=== PATIENT | male | born 1970 | race Caucasian/White ===

== ENCOUNTER 2017-03-09 15:25 | Inpatient (IN) | payer MEDICARE, OTHER ==
[~2017-03-09] VITALS: Ht 177.8 cm; Wt 147.4 kg
[~2017-03-09 15:25] MED LIST: ADVAIR 100-501 EACH; ALBUTEROL SULF8.5 GM; AMLODIPINE PO; ATROVENT HFA12.9 GM; ATROVENT HFA12.9 GM INH; AZITHROMYCIN250 MG; AZITHROMYCIN250 MG PO; BENICAR PO; K DUR10 MEQ PO; K-DUR20 MEQ; K-TAB10 MEQ PO; MEDROL4 MG PO; METOPROLOL PO; SPIRIVA HANDIH18 MCG IH; TESSALON PERLE100 MG PO; Z.0.CLINDAMYCIN HC30 PO; Z.0.LASIX20 MG PO; [UNRECOGNIZED DRUG - OTHER] PO; [UNRECOGNIZED DRUG - OTHER] PO
[2017-03-09] MEDS ORDERED: ASPIRIN 81 MG CHEW TAB PO ONE (16:30)
--- NOTE | 2017-03-09 17:20 | Diagnostic Imaging Report ---
EXAMINATION: CHEST SINGLE (PORTABLE) INDICATION: \S\ERMD ORDER \S\[id number] \S\1700 \S\Y COMPARISON: Chest radiograph on 08/22/2011 FINDINGS: AP view TUBES and LINES: None. LUNGS: Lungs are well inflated. Bilateral interstitial edema. Azygous fissure, unchanged. PLEURA: No pleural effusion or pneumothorax. HEART AND MEDIASTINUM: Mild enlargement of the cardiac silhouette.. BONES AND SOFT TISSUES: No acute osseous lesion. Soft tissues are unremarkable. UPPER ABDOMEN: No free air under the diaphragm. IMPRESSION: Bilateral interstitial edema. Signed by: Dr. Alessia Lee M.D. on 03/09/2017 5:17 PM
--- NOTE | 2017-03-09 17:30 | Diagnostic Imaging Report ---
EXAMINATION: Head CT HISTORY: These images, head pressure for the last 2 days COMPARISON: None. TECHNIQUE: Multidetector axial images were obtained without contrast from the foramen magnum to the vertex . The images were reconstructed using brain and bone algorithms. Thin section brain images were reformatted into coronal and sagittal planes. Intravenous contrast: None. Motion/streaking artifact limits the evaluation of the skull base and posterior cranial fossa. FINDINGS: Parenchyma: 1. No abnormal densities. 2. No mass or hemorrhage. No CT evidence of acute territorial vascular insult. Extra-axial spaces:No abnormal density. No extra-axial fluid collections Brain volume: Normal for age. Ventricles: No hydrocephalus or displacement. Arteries: No density suggestive of thrombus. Dural sinuses: No abnormal density. Extra-axial spaces: No abnormal density. Foramen magnum: No mass, Chiari malformation, or basilar invagination. Sella: No obvious mass. Paranasal/mastoid sinuses: Imaged portions unremarkable. Skull/Scalp: No lytic or blastic lesions. No fractures. IMPRESSION: Normal head CT. Signed by: Dr. Samantha Loza M.D. on 03/09/2017 5:27 PM
[2017-03-09 17:44] LABS: BASOPHILS % 0.4 % (0.0-1.0); EOSINOPHILS # (AUTO) 0.1 (0.0-0.4); EOSINOPHILS % 0.7 % (0.0-6.0); HEMATOCRIT 48.4 % (38.2-49.6); HEMOGLOBIN 16.1 g/dL (14.0-18.0); LYMPHOCYTES # (AUTO) 1.1 (1.0-3.2); LYMPHOCYTES % 10.2 % (18.0-39.1); MEAN CORPUSCULAR HEMOGLOBIN 33.2 pg (28-32); MEAN CORPUSCULAR HGB CONC 33.3 g/dL (31-35); MEAN CORPUSCULAR VOLUME 99.8 fL (81-99); MONOCYTES # (AUTO) 0.6 (0.2-0.8); MONOCYTES % 4.9 % (4.4-11.3); NEUTROPHILS # (AUTO) 9.3 (2.1-6.9); NEUTROPHILS % 83.4 % (38.7-80.0); PLATELET COUNT 273 x10e3/uL (140-360); RED BLOOD COUNT 4.85 x10e6/uL (4.3-5.7); RED CELL DISTRIBUTION WIDTH 14.7 % (11.7-14.4)
[2017-03-09 18:05] LABS: ALANINE AMINOTRANSFERASE 14 IU/L (0-55); ALBUMIN/GLOBULIN RATIO 0.7 (0.8-2.0); ALKALINE PHOSPHATASE 86 IU/L (40-150); ANION GAP 15.3 mmol/L (8-16); BLOOD UREA NITROGEN 8 mg/dL (7-26); BUN/CREATININE RATIO 11 (6-25); CALCIUM 8.8 mg/dL (8.4-10.2); CARBON DIOXIDE 38 mmol/L (22-29); CHLORIDE 91 mmol/L (98-107); CREATINE KINASE 20 IU/L (30-200); EST GLOMERULAR FILTRATION RATE > 60 ML/MIN (60-); GLUCOSE 197 mg/dL (74-118); POTASSIUM 3.3 mmol/L (3.5-5.1); SODIUM 141 mmol/L (136-145)
[2017-03-09 18:12] LABS: TROPONIN I < 0.001 ng/mL (0-0.300)
[2017-03-09 18:21] LABS: INR 0.9; PROTHROMBIN TIME 12.6 seconds (11.9-14.5)
[2017-03-09 18:22] LABS: PARTIAL THROMBOPLASTIN TIME 30.3 seconds (23.8-35.5)
[2017-03-09] MEDS ORDERED: METHYLPREDNISOLONE SOD SUCC 125 MG/2ML VIAL ONE (20:11)
[2017-03-09] MEDS ORDERED: DIPHENHYDRAMINE HCL INJ 1 ML ONE (20:11)
[2017-03-09] MEDS ORDERED: FAMOTIDINE 20 MG/2 ML VIAL IV ONE (20:12)
[2017-03-09] MEDS ORDERED: ALBUTEROL SULF 0.083% NEB SOLN 3 ML NEB NEB STA (21:45)
[2017-03-09] MEDS ORDERED: IPRATROPIUM BROMIDE 0.02% 2.5 ML NEB NEB ONE (21:45)
--- NOTE | 2017-03-09 21:52 | Diagnostic Imaging Report ---
EXAM: CT CHEST W DATE: 03/09/2017 6:58 PM INDICATION: Chest pain, positive d-dimer COMPARISON: None TECHNIQUE: Multidetector CT scanning of the chest was performed. Coronal and sagittal multiplanar reformations were obtained. IV Contrast: 100 ml Isovue 370/300 FINDINGS: Image quality is degraded by body habitus and suboptimal contrast attenuation within the pulmonary arterial system, which precludes adequate assessment for the exclusion of pulmonary artery embolism. No evidence of large central/main or lobar pulmonary embolism. Main pulmonary artery is enlarged, 3.7 cm. LUNGS AND PLEURA: No consolidations or edema. Nonspecific 5 mm left upper lobe pulmonary nodule in image 32. No effusions or pneumothorax. HEART, MEDIASTINUM, VESSELS: Cardiomegaly with small pericardial effusion. Prominent mediastinal, axillary nodes, likely reactive. UPPER ABDOMEN: Unremarkable. MUSCULOSKELETAL: No acute findings. IMPRESSION: 1. Study degraded by suboptimal contrast attenuation. No evidence of large central/main or lobar pulmonary embolism. 2. Cardiomegaly with small pericardial effusion. 3. Enlarged main pulmonary artery which can be seen with pulmonary arterial hypertension. Signed by: Dr Leslie Bryant MD on 03/09/2017 9:48 PM
[2017-03-09] MEDS ORDERED: ALBUTEROL SULF 0.083% NEB SOLN 3 ML NEB ONE (21:57)
[2017-03-09] MEDS ORDERED: IPRATROPIUM BROMIDE 0.02% 2.5 ML NEB ONE (21:57)
[2017-03-09] MEDS ORDERED: POTASSIUM CHLORIDE 20 MEQ TAB CR PO STA (22:18)
[2017-03-09] MEDS ORDERED: FUROSEMIDE INJ 10 MG/ML 4 ML VIAL IV ONE (22:30)
[2017-03-09] MEDS ORDERED: POTASSIUM CHLO20 ME1 PO (23:17)
[2017-03-09] MEDS ORDERED: METOPROLOL TART50 MG PO (23:17)
[2017-03-09] MEDS ORDERED: AMBIEN5 MG PO (23:17)
[2017-03-09] MEDS ORDERED: FUROSEMIDE40 MG PO (23:17)
[2017-03-09] MEDS ORDERED: QUETIAPINE FUM100 MG PO (23:17)
[2017-03-09] MEDS ORDERED: LISINOPRIL10 MG PO (23:17)
[2017-03-10 00:16] LABS: BILIRUBIN,URINE NEGATIVE (NEGATIVE); CLARITY,URINE CLEAR (CLEAR); COLOR,URINE YELLOW (YELLOW); KETONES,URINE NEGATIVE (NEGATIVE); LEUKOCYTE ESTERASE ,URINE NEGATIVE (NEGATIVE); NITRITE,URINE NEGATIVE (NEGATIVE); PROTEIN,URINE DIPSTICK NEGATIVE (NEGATIVE); URINE UROBILINOGEN 0.2 mg/dL (0.2 - 1)
[2017-03-10 00:17] LABS: ABG PH 7.35 (7.31-7.41)
[2017-03-10 00:18] LABS: ABG HCO3 43 mmol/L (23-28); ABG PCO2 77 mmHg (41-51); ABG PO2 61 mmHg (80-105)
[2017-03-10] MEDS ORDERED: QUETIAPINE FUMA25 MG PO (00:21)
[2017-03-10 00:29] LABS: BACTERIA,URINE FEW /HPF; EPITHELIAL CELLS,URINE FEW /LPF; RBC,URINE 0-5 /HPF (0-5); WBC,URINE (MAN) 0-5 /HPF (0-5)
[2017-03-10 00:51] LABS: CREATINE KINASE MB < 1.00 ng/mL (0-4.3); TROPONIN I < 0.05 ng/mL (0.0-0.40)
[2017-03-10 01:15] LABS: CREATINE KINASE 21 IU/L (30-200)
[2017-03-10 01:17] LABS: ABG PH 7.37 (7.31-7.41)
[2017-03-10 01:18] LABS: ABG HCO3 44 mmol/L (23-28); ABG PCO2 75 mmHg (41-51); ABG PO2 73 mmHg (80-105)
[2017-03-10] MEDS ORDERED: IOPAMIDOL 370 MG/ML 200 ML INFUS..BTL INJ ONE (05:21)
[2017-03-10] MEDS ORDERED: SODIUM CHLORIDE 0.9% 50ML 50 ML ONE (05:21)
[2017-03-10] MEDS ORDERED: METHYLPREDNISOLONE SOD SUCC 125 MG/2ML VIAL IV SCH (06:00)
[2017-03-10 06:25] LABS: BASOPHILS % 0.4 % (0.0-1.0); EOSINOPHILS # (AUTO) 0.1 (0.0-0.4); EOSINOPHILS % 1.1 % (0.0-6.0); HEMATOCRIT 49.2 % (38.2-49.6); HEMOGLOBIN 15.5 g/dL (14.0-18.0); LYMPHOCYTES # (AUTO) 0.9 (1.0-3.2); LYMPHOCYTES % 9.3 % (18.0-39.1); MEAN CORPUSCULAR HEMOGLOBIN 32.4 pg (28-32); MEAN CORPUSCULAR HGB CONC 31.5 g/dL (31-35); MEAN CORPUSCULAR VOLUME 102.7 fL (81-99); MONOCYTES # (AUTO) 0.7 (0.2-0.8); MONOCYTES % 6.8 % (4.4-11.3); NEUTROPHILS # (AUTO) 8.3 (2.1-6.9); NEUTROPHILS % 82.1 % (38.7-80.0); PLATELET COUNT 237 x10e3/uL (140-360); RED BLOOD COUNT 4.79 x10e6/uL (4.3-5.7); RED CELL DISTRIBUTION WIDTH 14.7 % (11.7-14.4)
[2017-03-10 06:41] LABS: CREATINE KINASE 13 IU/L (30-200)
[2017-03-10 06:47] LABS: ALANINE AMINOTRANSFERASE 12 IU/L (0-55); ALBUMIN 2.9 g/dL (3.5-5.0); ALBUMIN/GLOBULIN RATIO 0.8 (0.8-2.0); ALKALINE PHOSPHATASE 83 IU/L (40-150); ANION GAP 12.2 mmol/L (8-16); BLOOD UREA NITROGEN 7 mg/dL (7-26); BUN/CREATININE RATIO 11 (6-25); CALCIUM 8.6 mg/dL (8.4-10.2); CARBON DIOXIDE 39 mmol/L (22-29); CHLORIDE 92 mmol/L (98-107); CREATININE, SERUM 0.61 mg/dL (0.72-1.25); EST GLOMERULAR FILTRATION RATE > 60 ML/MIN (60-); GLUCOSE 96 mg/dL (74-118); POTASSIUM 3.2 mmol/L (3.5-5.1); SODIUM 140 mmol/L (136-145)
[2017-03-10 06:49] LABS: TROPONIN I < 0.001 ng/mL (0-0.300)
--- NOTE | 2017-03-10 07:38 | Diagnostic Imaging Report ---
Examination: Single AP view of the chest. COMPARISON: 03/09/2017 INDICATION: Shortness of breath DISCUSSION: Lines/tubes: None. Lungs: Pulmonary venous congestion with interstitial edema. Pleura: Fluid within the minor fissure. Heart and mediastinum: Heart size enlarged. Enlarged pulmonary arteries. Bones and soft tissues: No acute bony abnormalities. IMPRESSION: 1. Cardiomegaly with stable pulmonary edema Signed by: Dr. Kirk Pemberton M.D. on 03/10/2017 7:34 AM
[2017-03-10] MEDS: LEVOFLOXACIN 500MG/D5W 100ML 100 ML IV SCH ×2 (08:11)
[2017-03-10] MEDS: IPRATROPIUM BROMIDE 0.02% 2.5 ML NEB NEB SCH ×7 (08:23→18:00)
[2017-03-10] MEDS: ALBUTEROL SULF 0.083% NEB SOLN 3 ML NEB NEB SCH ×6 (08:23→18:00)
[2017-03-10] MEDS ORDERED: POTASSIUM CHLORIDE 20 MEQ TAB CR PO SCH (09:00)
[2017-03-10] MEDS: METOPROLOL TARTRATE 50 MG TAB PO SCH ×2 (09:40→15:56)
[2017-03-10] MEDS: FUROSEMIDE INJ 10 MG/ML 4 ML VIAL IV SCH ×2 (09:40→15:56)
[2017-03-10] MEDS: LISINOPRIL 10 MG TAB PO SCH (09:40)
[2017-03-10] MEDS: COLCHICINE 0.6 MG TAB PO SCH (09:46)
--- NOTE | 2017-03-10 11:03 | History and Physical ---
PCP: Dr. Annmarie Breen and on-call covering doctor. CHIEF COMPLAINT: Right-sided chest pain, difficulty breathing worsening since last 3-4 weeks. HISTORY OF PRESENT ILLNESS: A 47-year-old pleasant male with a past medical history of multiple medical problems was admitted at [facility] last night with the above complaints. As per the patient, he has since the last 3-4 weeks has right-sided chest pain, on and off worsening. Patient saw Dr. Annmarie Breen, PCP last month, and was diagnosed with bronchitis and prescribed Ceftin. Patient did not feel better. Also, complained of cough with yellow appearing phlegm plus trouble breathing and gradually got worse. Hence, the patient came to the hospital last night. In the emergency room, the patient was seen and evaluated by the emergency room doctor, Dr. Rodriguez, and was diagnosed with COPD and CHF exacerbation. Started on BiPAP and given IV antibiotics, IV Lasix, oxygen, neb treatments. At present, the patient is lying comfortably in bed in no apparent distress. No chest pain. No shortness of breath. No nausea, vomiting or diarrhea. No abdominal pain or loss of consciousness. No palpitations. No headaches. No hematemesis. No melena. No hematuria. No dysuria. No fever. No witnessed seizures. PAST MEDICAL HISTORY 1. COPD. 2. CHF. 3. Obstructive sleep apnea. 4. Morbid obesity. 5. Depression and anxiety. 6. Hypertension. 7. Patient on home O2 and CPAP. 8. Patient has a history of chronic low back pain. ALLERGIES: NO KNOWN DRUG ALLERGIES. HOME MEDICATIONS: List is: 1. Lasix 40 mg p.o. t.i.d. 2. Effexor XR 37.5 mg p.o. daily. 3. Seroquel 25 mg p.o. daily. 4. Potassium 20 mEq p.o. b.i.d. 5. Metoprolol 100 mg p.o. b.i.d. SURGICAL HISTORY: None. SOCIAL HISTORY: Smoking plus. Denies alcohol. No illicit drug use. Lives with family. FAMILY HISTORY: Mother with CA of lung. Father with CHF. REVIEW OF SYSTEMS: As per HPI. PHYSICAL EXAMINATION GENERAL: The patient is alert, awake and oriented times 3. No apparent distress. On BiPAP and laying comfortably in bed. VITALS: Temperature is 98, pulse 78 per minute, respiratory rate 16 per minute, blood pressure 109/62, and saturation is 98% on BiPAP. HEENT: No sinus tenderness. There is no pallor. Normocephalic and atraumatic. PERRLA. NECK: Soft and supple. No JVD, carotid bruits or lymphadenopathy. LUNGS: Air entry bilaterally decreased. HEART: S1 and S2. No murmurs, gallops or rubs. ABDOMEN: Soft and nontender. Bowel sounds plus. 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 Obeys all commands. Moves extremities. EXTREMITIES: No cyanosis. No clubbing. Edema +1. LABS: This morning white count 10.11, hemoglobin 15.5, hematocrit 41.5, and platelets 237,000. Sodium 140, potassium 3.2, chloride 92, bicarb 39, BUN 7, creatinine 0.6. LFTs noted. Cardiac enzymes times 2 negative. PT 12.6, INR 0.9 and PTT 30.3. D-dimer 0.98. CT angiogram done yesterday night shows no evidence of large central or main lobar pulmonary embolism. Cardiomegaly with small pericardial effusion. Enlarged main pulmonary artery which can be seen with pulmonary artery hypertension. ABG on admission to the ER with pH of 7.35, pCO2 77, pO2 61, bicarb 43. ASSESSMENT 1. Nrgur-br-[id number] hypercapnic respiratory failure. 2. Chronic obstructive pulmonary disease exacerbation. 3. Congestive heart failure exacerbation. 4. History of obstructive sleep apnea. 5. Anxiety and depression. 6. Hypertension. PLAN: Admit the patient to the ICU. BiPAP support. Levaquin 500 mg IV daily. Oxygen and neb treatments. Lasix 60 mg IV q.12 h. Pulmonary critical care consultation with Dr. Brooks. Cardiology consultation with Dr. Howard. Will get 2-D echo. DVT and stress prophylaxis. Further care and treatment for the patient while in the hospital. Discussed with the patient at length. Job#: [id number] EMMA
[2017-03-10] MEDS ORDERED: DEXTROSE 50% SYRINGE 50 ML IV PRN (12:30)
[2017-03-10] MEDS: ENOXAPARIN SOD INJ 40 MG/0.4 ML SYR SC SCH (15:56)
[2017-03-10] MEDS: HYDROCODONE/APAP 5MG-325MG TAB PO PRN (15:57)
[2017-03-10] MEDS: POTASSIUM CHLORIDE 20 MEQ TAB CR PO SCH (16:28)
[2017-03-10] MEDS: INSULIN LISPRO 100 UNIT/1 ML 3ML VIAL SQ SCH ×2 (16:28→21:09)
--- NOTE | 2017-03-10 17:01 | Consultation ---
DATE OF CONSULTATION: March 10, 2017 PULMONARY CONSULTATION HISTORY OF PRESENT ILLNESS: Patient with a history of obstructive pulmonary disease, a history of congestive heart failure, history of sleep apnea, with life-threatening noncompliance. He is admitted with right-sided chest pain and shortness of breath over several weeks. He has had a cough which is productive according to record. He is currently sleeping, on BiPAP, was not arousable. History of depression, hypertension, chronic CO2 retention, chronic pain. HOME MEDICATIONS: Have included Lasix, Effexor, Seroquel, potassium, metoprolol. SOCIAL HISTORY: History of smoking. FAMILY HISTORY: Positive for carcinoma of the lung and heart failure. PHYSICAL EXAMINATION: GENERAL: He is a morbidly obese white male lying supine, on BiPAP. VITALS: He is afebrile, temperature 99.9. Pulse 76, respirations 19, blood pressure 129/78. O2 saturation 91%. He is on BiPAP at a level of 16/8. HEAD: Normocephalic atraumatic. NECK: Trachea midline. LUNGS: Diminished breath sounds. HEART: Regular rhythm. ABDOMEN: Obese. EXTREMITIES: Brawny edema lower extremities. Stasis changes. IMPRESSION: One of chronic hypercapnic respiratory failure, severe obstructive sleep apnea. PLAN: Is to continue support. BiPAP as needed. Supplemental oxygen. Avoid sedation. Evaluation of pericardial effusion as per Dr. Hernandez and Dr. Howard. Currently he has been placed on colchicine, presumably for this indication. According to record, his home medications have included Lasix, lisinopril, metoprolol, potassium, Seroquel and Ambien. Attempt to reduce these if possible. Continue bronchodilators and BiPAP. Monitor blood sugars. Thank you for this kind referral. Job#: [id number] EV
[2017-03-10 19:42] LABS: ABG HCO3 42 mmol/L (23-28); ABG PCO2 62 mmHg (41-51); ABG PH 7.44 (7.31-7.41); ABG PO2 66 mmHg (80-105)
[2017-03-10] MEDS ORDERED: HEPARIN SOD (PORCINE) 5,000 UNIT/ML VIAL SC SCH (21:00)
[2017-03-10] MEDS: METHYLPREDNISOLONE SOD SUCC 125 MG/2ML VIAL IV SCH (21:15)
[2017-03-10 22:00] VITALS: BP 100/66
[2017-03-10 22:09] VITALS: BP 113/65
[2017-03-10 23:30] VITALS: BP 100/55
[2017-03-11] VITALS (26 sets, daily range): BP systolic 70–123; BP diastolic 50–78
[2017-03-11] MEDS: HYDROCODONE/APAP 5MG-325MG TAB PO PRN ×2 (00:10→20:12)
[2017-03-11] MEDS: IPRATROPIUM BROMIDE 0.02% 2.5 ML NEB NEB SCH ×6 (04:00→23:50)
[2017-03-11] MEDS: ALBUTEROL SULF 0.083% NEB SOLN 3 ML NEB NEB SCH ×7 (04:00→23:50)
[2017-03-11 05:39] LABS: BASOPHILS % 0.1 % (0.0-1.0); HEMATOCRIT 48.9 % (38.2-49.6); HEMOGLOBIN 15.5 g/dL (14.0-18.0); LYMPHOCYTES # (AUTO) 0.7 (1.0-3.2); LYMPHOCYTES % 4.7 % (18.0-39.1); MEAN CORPUSCULAR HEMOGLOBIN 32.2 pg (28-32); MEAN CORPUSCULAR HGB CONC 31.7 g/dL (31-35); MEAN CORPUSCULAR VOLUME 101.5 fL (81-99); MONOCYTES # (AUTO) 0.4 (0.2-0.8); MONOCYTES % 2.9 % (4.4-11.3); NEUTROPHILS # (AUTO) 12.8 (2.1-6.9); NEUTROPHILS % 91.7 % (38.7-80.0); PLATELET COUNT 266 x10e3/uL (140-360); RED BLOOD COUNT 4.82 x10e6/uL (4.3-5.7); RED CELL DISTRIBUTION WIDTH 14.3 % (11.7-14.4)
[2017-03-11 05:52] LABS: ALANINE AMINOTRANSFERASE 10 IU/L (0-55); ALBUMIN 3.1 g/dL (3.5-5.0); ALBUMIN/GLOBULIN RATIO 0.8 (0.8-2.0); ALKALINE PHOSPHATASE 82 IU/L (40-150); ANION GAP 13.4 mmol/L (8-16); BUN/CREATININE RATIO 23 (6-25); CALCIUM 9.3 mg/dL (8.4-10.2); CARBON DIOXIDE 37 mmol/L (22-29); CHLORIDE 92 mmol/L (98-107); CREATININE, SERUM 0.66 mg/dL (0.72-1.25); EST GLOMERULAR FILTRATION RATE > 60 ML/MIN (60-); GLUCOSE 147 mg/dL (74-118); POTASSIUM 3.4 mmol/L (3.5-5.1); SODIUM 139 mmol/L (136-145)
[2017-03-11 05:56] LABS: BLOOD UREA NITROGEN 15 mg/dL (7-26)
--- NOTE | 2017-03-11 06:07 | Consultation ---
DATE OF CONSULTATION: March 10, 2017 CARDIOLOGY CONSULTATION REASON FOR CONSULTATION: Chest pain. HISTORY OF PRESENT ILLNESS: Mr. Villafuerte is a 47-year-old man with morbid obesity, BMI of 54.8, hypertension, COPD, history of chronic pericarditis, chronic venous insufficiency, active smoker of 5 cigarettes per day, obesity hypoventilation syndrome, and hypothyroidism, who presents to [facility] via emergency department with complaints of approximately 1 week with productive cough over the last couple of days and associated right-sided chest discomfort with inspiration, as well as cough unrelated to exertion. He has noted some mild worsening of his leg edema. However, he recently decreased his diuretic dosage. He is currently on BiPAP for sleeping at night. REVIEW OF SYSTEMS: A 12-system review negative except for as noted above. ALLERGIES: SHELLFISH. PAST MEDICAL HISTORY: As per HPI. SOCIAL HISTORY: Active smoker. Occasional alcohol. No drugs. PHYSICAL EXAMINATION VITALS: Temperature 99 degrees, heart rate 78, respiratory rate 20, blood pressure 115/48, and O2 sat 94% on BiPAP. GENERAL: In no acute distress. Obese. NECK: Short neck. CHEST: Decreased breath sounds in bilateral bases. Scattered rhonchi and wheezing. CARDIOVASCULAR: Regular rate and rhythm. Normal S1 and S2. No S3. No S4. No murmurs. Distant heart sounds. ABDOMEN: Morbidly obese. Soft and nontender. EXTREMITIES: One plus edema of bilateral lower extremities. Hyperpigmented changes to lower extremities. CARDIOVASCULAR MEDICATIONS: Reviewed. Undergoing treatment with: 1. Prednisolone 60 mg q.8 h. IV. 2. Metoprolol tartrate 100 mg b.i.d. 3. Lisinopril 20 mg daily. 4. Furosemide increased to 60 mg b.i.d. STUDIES: White blood cells 10.1, hemoglobin 15.5 and platelets 237,000 with a neutrophil count of 82, lymphocytes 93. INR 0.9. D-dimer 0.98 and elevated. Sodium 140, potassium 3.2, chloride 92, bicarbonate 29, BUN 7, creatinine 0.61. Normal transaminases. Negative troponins. BNP 62. Chest x-ray with cardiomegaly and stable pulmonary edema. CT of chest also significant for enlarged pulmonary artery. No evidence of central main or lobar pulmonary embolism. Cardiomegaly and small pericardial effusion. EKG is normal sinus rhythm with right bundle branch block. ASSESSMENT 1. Pleuritic type chest discomfort in the setting of worsening respiratory tract symptoms. 2. Chronic obstructive pulmonary disease with acute exacerbation. 3. Obesity hypoventilation syndrome. 4. Active smoker. 5. Morbid obesity. 6. Hypothyroidism. 7. Vein insufficiency of the lower extremities. 8. History of chronic pericarditis now with pleuritic chest discomfort. RECOMMENDATIONS: Agree with IV diuretics. Replete electrolytes as needed. Obtain echocardiogram. Keep on telemetry. Continue weight loss. Chest pain pattern noncoronary. However, with history of pericarditis, will consider trial of colchicine. Job#: [id number] EMMA
[2017-03-11] MEDS: INSULIN LISPRO 100 UNIT/1 ML 3ML VIAL SQ SCH ×4 (07:30→21:00)
[2017-03-11] MEDS: PANTOPRAZOLE SOD 40 MG TABEC PO SCH (07:56)
[2017-03-11] MEDS: POTASSIUM CHLORIDE 20 MEQ TAB CR PO SCH ×2 (08:16→20:05)
[2017-03-11] MEDS: METHYLPREDNISOLONE SOD SUCC 125 MG/2ML VIAL IV SCH ×2 (08:16→20:05)
[2017-03-11] MEDS: VENLAFAXINE HCL 37.5MG XR CAP PO SCH (08:16)
[2017-03-11] MEDS: FUROSEMIDE INJ 10 MG/ML 4 ML VIAL IV SCH ×2 (08:16→20:04)
[2017-03-11] MEDS: COLCHICINE 0.6 MG TAB PO SCH (08:16)
[2017-03-11] MEDS: LEVOFLOXACIN 500MG/D5W 100ML 100 ML IV SCH (08:16)
[2017-03-11] MEDS: LISINOPRIL 10 MG TAB PO SCH (08:16)
[2017-03-11] MEDS: METOPROLOL TARTRATE 50 MG TAB PO SCH ×2 (08:21→17:00)
[2017-03-11] MEDS ORDERED: POTASSIUM CHLORIDE 10 MEQ TABCR PO ONE (08:45)
--- NOTE | 2017-03-11 19:11 | Progress Note ---
DATE: March 11, 2017 CARDIOLOGY PROGRESS NOTE SUBJECTIVE: The patient reports his chest pain and shortness of breath have improved. OBJECTIVE VITAL SIGNS: Temperature 98.3 degrees, pulse 56, respiratory rate 20, blood pressure 111/65, oxygen saturation 98% on 2 liters nasal cannula. GENERAL: An obese gentleman in no acute distress. LUNGS: Decreased breath sounds bilateral bases, no wheezes or crackles. CARDIOVASCULAR: Normal rate, regular rhythm. No murmurs. Normal S1 and S2. ABDOMEN: Soft and nontender. EXTREMITIES: There is 1+ pitting edema with hyperpigmentation of bilateral lower extremities. CARDIAC MEDICATIONS: 1. Metoprolol tartrate 100 mg p.o. b.i.d. 2. Furosemide 60 mg IV b.i.d. 3. Enoxaparin 40 mg subcu daily. 4. Lisinopril 20 mg p.o. nightly. LABORATORY DATA: WBC 13.9, hemoglobin 15.5, hematocrit 48.9, platelets 266,000, sodium 139, potassium 3.4, chloride 92, CO2 of 37, BUN 15, creatinine 0.66. TELEMETRY: Normal sinus rhythm. IMPRESSION 1. Pleuritic chest pain in the setting of worsening respiratory tract symptoms. 2. Chronic obstructive pulmonary disease exacerbation. 3. Obesity. 4. Hypoventilation syndrome. 5. Tobacco use. 6. Morbid obesity. 7. Hypothyroidism. 8. Venous insufficiency of bilateral lower extremities. 9. History of chronic pericarditis. RECOMMENDATIONS: Continue current cardiac medications and monitor creatinine closely. Replete electrolytes as needed. The patient was counseled on the importance of weight loss as well as exercise and risk factor modification. If the patient's chest pain does not improve with treatment of his COPD, consider trial of Colchicine. Please monitor the patient on telemetry. Thank you for this consult. We will continue to follow. Job#: [id number]
[2017-03-11] MEDS: ENOXAPARIN SOD INJ 40 MG/0.4 ML SYR SC SCH (20:05)
[2017-03-12] VITALS (7 sets, daily range): BP systolic 98–123; BP diastolic 53–61
[2017-03-12] MEDS: ALBUTEROL SULF 0.083% NEB SOLN 3 ML NEB NEB SCH ×5 (03:25→20:35)
[2017-03-12] MEDS: IPRATROPIUM BROMIDE 0.02% 2.5 ML NEB NEB SCH ×5 (03:25→20:30)
[2017-03-12 06:20] LABS: ANION GAP 15.8 mmol/L (8-16); BLOOD UREA NITROGEN 20 mg/dL (7-26); BUN/CREATININE RATIO 28 (6-25); CALCIUM 9.3 mg/dL (8.4-10.2); CARBON DIOXIDE 37 mmol/L (22-29); CHLORIDE 93 mmol/L (98-107); CREATININE, SERUM 0.72 mg/dL (0.72-1.25); EST GLOMERULAR FILTRATION RATE > 60 ML/MIN (60-); GLUCOSE 132 mg/dL (74-118); MAGNESIUM 2.5 MG/DL (1.3-2.1); POTASSIUM 3.8 mmol/L (3.5-5.1); SODIUM 142 mmol/L (136-145)
[2017-03-12] MEDS: PANTOPRAZOLE SOD 40 MG TABEC PO SCH (07:30)
[2017-03-12] MEDS: INSULIN LISPRO 100 UNIT/1 ML 3ML VIAL SQ SCH ×4 (07:30→20:29)
[2017-03-12] MEDS: VENLAFAXINE HCL 37.5MG XR CAP PO SCH (08:56)
[2017-03-12] MEDS: METHYLPREDNISOLONE SOD SUCC 125 MG/2ML VIAL IV SCH (08:56)
[2017-03-12] MEDS: LEVOFLOXACIN 500MG/D5W 100ML 100 ML IV SCH (08:56)
[2017-03-12] MEDS: FUROSEMIDE INJ 10 MG/ML 4 ML VIAL IV SCH ×2 (08:56→18:06)
[2017-03-12] MEDS: COLCHICINE 0.6 MG TAB PO SCH (08:56)
[2017-03-12] MEDS: POTASSIUM CHLORIDE 20 MEQ TAB CR PO SCH ×2 (08:57→18:40)
[2017-03-12] MEDS: METOPROLOL TARTRATE 50 MG TAB PO SCH ×2 (08:57→17:00)
[2017-03-12] MEDS: HYDROCODONE/APAP 5MG-325MG TAB PO PRN ×2 (08:59→18:07)
[2017-03-12] MEDS: LISINOPRIL 20 MG TAB PO SCH (08:59)
[2017-03-12] MEDS ORDERED: CITRATE OF MAGNESIA 300ML BOTTLE PO PRN (15:30)
[2017-03-12] MEDS ORDERED: MAGNESIUM HYDROXIDE 30 ML UDC PO PRN (15:30)
[2017-03-12] MEDS: DOCUSATE SODIUM LIQD 100 MG/10 ML UDC NG SCH (18:06)
[2017-03-12] MEDS: ENOXAPARIN SOD INJ 40 MG/0.4 ML SYR SC SCH (18:07)
--- NOTE | 2017-03-12 19:22 | Progress Note ---
DATE: March 12, 2017 CARDIOLOGY PROGRESS NOTE SUBJECTIVE: The patient denies chest pain or shortness of breath. However, he reports he still continues to desat with ambulation. OBJECTIVE VITAL SIGNS: Temperature 96.6 degrees, pulse 50, respiratory rate 20, blood pressure 109/61, oxygen saturation 99% on 3 liters nasal cannula. GENERAL: Awake, alert and in no acute distress, obese. LUNGS: Decreased breath sounds bilateral bases, no wheezes or crackles. CARDIOVASCULAR: Normal rate, regular rhythm. No murmurs. ABDOMEN: Soft and nontender. EXTREMITIES: There is 1+ pitting edema with hyperpigmentation of bilateral lower extremities. CARDIAC MEDICATIONS: 1. Enoxaparin 40 mg subcu daily. 2. Metoprolol tartrate 50 mg p.o. b.i.d. 3. p.o. daily. 4. Furosemide 60 mg IV b.i.d. LABORATORY DATA: Sodium 142, potassium 3.8, chloride 93, CO2 of 37, BUN 20, creatinine 0.72. TELEMETRY: Normal sinus rhythm. IMPRESSION 1. Pleuritic chest pain in the setting of worsening respiratory tract symptoms. 2. Chronic obstructive pulmonary disease exacerbation. 3. Obesity. 4. Hypoventilation syndrome. 5. Tobacco use. 6. Morbid obesity. 7. Hypothyroidism. 8. Venous insufficiency of bilateral lower extremities. 9. History of chronic pericarditis. RECOMMENDATIONS: Continue current cardiac medications. Monitor creatinine closely. Replete electrolytes as needed. The patient was counseled on the importance of weight loss as well as exercising and risk factor modification. Please monitor the patient on telemetry. Thank you for this consult. We will continue to follow. Job#: [id number]
[2017-03-12] MEDS ORDERED: METHYLPREDNISOLONE SOD SUCC 125 MG/2ML VIAL IV SCH (21:00)
[2017-03-12] MEDS: METHYLPREDNISOLONE SOD SUCC 40 MG/ML VIAL IV SCH (21:09)
[2017-03-13] VITALS: BP 114/55
[2017-03-13] MEDS: IPRATROPIUM BROMIDE 0.02% 2.5 ML NEB NEB SCH ×4 (02:50→14:43)
[2017-03-13] MEDS: ALBUTEROL SULF 0.083% NEB SOLN 3 ML NEB NEB SCH ×4 (02:50→14:43)
[2017-03-13 04:00] VITALS: BP 141/64
[2017-03-13 06:38] LABS: ALANINE AMINOTRANSFERASE 13 IU/L (0-55); ALBUMIN 3.3 g/dL (3.5-5.0); ALBUMIN/GLOBULIN RATIO 0.9 (0.8-2.0); ALKALINE PHOSPHATASE 69 IU/L (40-150); ANION GAP 12.6 mmol/L (8-16); BLOOD UREA NITROGEN 23 mg/dL (7-26); BUN/CREATININE RATIO 32 (6-25); CALCIUM 9.5 mg/dL (8.4-10.2); CARBON DIOXIDE 38 mmol/L (22-29); CHLORIDE 95 mmol/L (98-107); CREATININE, SERUM 0.71 mg/dL (0.72-1.25); EST GLOMERULAR FILTRATION RATE > 60 ML/MIN (60-); GLUCOSE 109 mg/dL (74-118); MAGNESIUM 2.6 MG/DL (1.3-2.1); POTASSIUM 3.6 mmol/L (3.5-5.1); SODIUM 142 mmol/L (136-145)
[2017-03-13] MEDS: INSULIN LISPRO 100 UNIT/1 ML 3ML VIAL SQ SCH ×2 (07:30→11:30)
[2017-03-13 08:01] VITALS: BP 102/61
[2017-03-13] MEDS: LISINOPRIL 20 MG TAB PO SCH ×2 (09:00→12:30)
[2017-03-13] MEDS: METOPROLOL TARTRATE 50 MG TAB PO SCH (09:00)
[2017-03-13] MEDS: FUROSEMIDE INJ 10 MG/ML 4 ML VIAL IV SCH (09:37)
[2017-03-13] MEDS: LEVOFLOXACIN 500MG/D5W 100ML 100 ML IV SCH (09:37)
[2017-03-13] MEDS: COLCHICINE 0.6 MG TAB PO SCH (09:37)
[2017-03-13] MEDS: POTASSIUM CHLORIDE 20 MEQ TAB CR PO SCH (09:38)
[2017-03-13] MEDS: PANTOPRAZOLE SOD 40 MG TABEC PO SCH (09:38)
[2017-03-13] MEDS: VENLAFAXINE HCL 37.5MG XR CAP PO SCH (09:38)
[2017-03-13] MEDS: METHYLPREDNISOLONE SOD SUCC 40 MG/ML VIAL IV SCH (09:39)
[2017-03-13] MEDS: HYDROCODONE/APAP 5MG-325MG TAB PO PRN (09:39)
[2017-03-13] MEDS: DOCUSATE SODIUM LIQD 100 MG/10 ML UDC NG SCH (11:08)
[2017-03-13 11:47] VITALS: BP 142/83
--- NOTE | 2017-03-13 13:30 | Progress Note ---
DATE: March 13, 2017 CARDIOLOGY PROGRESS NOTE SUBJECTIVE: The patient denies chest pain or shortness of breath. He reports he is feeling better and able to ambulate without symptoms. OBJECTIVE VITAL SIGNS: Temperature 97.3 degrees, pulse 67, respiratory rate 19, blood pressure 142/83, oxygen saturation 99% on 4 L nasal cannula. GENERAL: Awake, alert, in no acute distress, obese. LUNGS: Decreased breath sounds at the bases, no wheezes or crackles. CARDIOVASCULAR: Normal rate, regular rhythm. No murmurs. Normal S1 and S2. ABDOMEN: Soft and nontender. EXTREMITIES: Trace edema with hyperpigmentation of bilateral lower extremities. CARDIAC MEDICATIONS 1. Lisinopril 20 mg p.o. daily. 2. Furosemide 60 mg IV b.i.d. 3. Enoxaparin 40 mg subcutaneous daily. 4. Metoprolol tartrate 50 mg p.o. b.i.d. LABS: Sodium 142, potassium 3.6, chloride 95, CO2 of 38, BUN 23, creatinine 0.71. TELEMETRY: Normal sinus rhythm. IMPRESSION 1. Pleuritic chest pain in the setting of worsening respiratory tract symptoms. 2. Chronic obstructive pulmonary disease exacerbation. 3. Obesity-hypoventilation syndrome. 4. Tobacco use. 5. Morbid obesity. 6. Hypothyroidism. 7. Venous insufficiency of bilateral lower extremities. 8. History of chronic pericarditis. RECOMMENDATIONS: Continue current cardiac medications. Monitor creatinine closely. Replete electrolytes as needed. The patient was counseled on the importance of weight loss as well as exercise and risk factor modification. Monitor the patient on telemetry while admitted. Patient can be discharged home on 60 mg p.o. b.i.d. He was taught regarding daily weights, low-salt diet and fluid restriction. Please have the patient follow up with us in the office in 2 weeks. Thank you for this consult. We will continue to follow. Job#: [id number]
[2017-03-13] MEDS ORDERED: LEVAQUIN500 MG PO (13:51)
[2017-03-13] MEDS ORDERED: PREDNISONE5 MG PO (13:52)
[2017-03-13] MEDS ORDERED: ALBUTEROL0.63 MG/3 (13:53)
[2017-03-14] MEDS ORDERED: PREDNISONE 20 MG TAB PO SCH (09:00)
== END 2017-03-13 15:35 | disposition home or self-care (01) | DRG 189 ==
LOC: ER 15:25 → ERHOLD 03-10 00:06 → EDBEDREQ 03-10 00:08 → ICU 03-10 21:49 → MED/SURG2 03-11 22:13
PROVIDERS: ADMIT Internal Medicine; ATTEND Internal Medicine
PROC: 5A09357 Assistance with Respiratory Ventilation, Less than 24 Consecutive Hours, Continuous Positive Airway Pressure (ICD-10-PCS; principal; 2017-03-10)
DX: J96.22 Acute and chronic respiratory failure with hypercapnia (principal); I31.9 Disease of pericardium, unspecified; Z68.42 Body mass index [BMI] 45.0-49.9, adult; I11.0 Hypertensive heart disease with heart failure; I50.9 Heart failure, unspecified; E66.2 Morbid (severe) obesity with alveolar hypoventilation; J44.1 Chronic obstructive pulmonary disease with (acute) exacerbation; G47.33 Obstructive sleep apnea (adult) (pediatric); F41.8 Other specified anxiety disorders; I87.2 Venous insufficiency (chronic) (peripheral); E03.9 Hypothyroidism, unspecified; Z91.19 Patient's noncompliance with other medical treatment and regimen; F17.210 Nicotine dependence, cigarettes, uncomplicated; Z79.52 Long term (current) use of systemic steroids
CPT/HCPCS: 36415; 36600; 70450; 71045; 71260; 80048; 80053; 81001; 82550; 82553; 82805; 82948; 83735; 83880; 84484; 85025; 85379; 85610; 85730; 87070; 87086; 87205; 93005; 93306; 94640; 94660; 96372; 96376; 99285; J1200; J1650; J1940; J1956; J2920; J2930; Q9967

== ENCOUNTER → 2017-04-08 | Outpatient (CLI) | payer MEDICARE ==
[~2017-04-08] MED LIST changes: +ALBUTEROL0.63 MG/3; +AMBIEN5 MG PO; +FUROSEMIDE40 MG PO; +LEVAQUIN500 MG PO; +LISINOPRIL10 MG PO; +METOPROLOL TART50 MG PO; +POTASSIUM CHLO20 ME1 PO; +PREDNISONE5 MG PO; +QUETIAPINE FUM100 MG PO; +QUETIAPINE FUMA25 MG PO
--- NOTE | 2017-04-09 14:48 | Pulmonary Function Test ---
DATE OF STUDY: April 08, 2017 Forced vital capacity 2.79 L, 54% of predicted. FEV1 is 2.03 L, 50%. FEV1/FVC ratio 73%. [id number] 43% and restricted pattern. There is no significant improvement following inhalation of bronchodilators. Diffusion capacity is reduced at 19.6, 57% of predicted. Total lung capacity is reduced at 5.4 L, 74% of predicted. Findings consistent with restrictive pulmonary disease. Restriction may be secondary to morbid obesity, congestive heart failure, pleural disease, neuromuscular disease, chest wall disease, diaphragmatic disease, parenchymal pulmonary disease, congestive heart failure, morbid obesity. Clinical correlation required. Job#: [id number] RI
== END ==
LOC: RESP 09:33
PROVIDERS: ATTEND Internal Medicine Pulmonary Disease
DX: J44.9 Chronic obstructive pulmonary disease, unspecified (principal)
CPT/HCPCS: 94060; 94727; 94729

== ENCOUNTER 2017-07-18 11:51 | Emergency (ER) | payer MEDICARE ==
[~2017-07-18] VITALS: Ht 177.8 cm; Wt 147.4 kg
--- OUTSIDE RECORDS SUMMARY | 2017-07-18 11:55 | XMS REPORT | Clinical Summary ---
Author Author [facility] Organization [facility] Address Unknown Phone Unavailable Care Team Providers Care Acute Care Nurse Name Role Phone Asked, Pcp PCP Unavailable Allergies Active Allergy Reactions Severity Noted Date Comments Iodine 08/14/2016 Current Medications Prescription Sig. Disp. Refills Start End Date Status Date cyclobenzaprine Take 1 tablet (10 mg 20 tablet 0 08/15/19 09/14/19 (FLEXERIL) 10 mg tablet total) by mouth 2 (two) 17 17 times a day as needed for muscle spasms for up to 30 days. traMADol (ULTRAM) 50 mg Take 1 tablet (50 mg 16 tablet 0 08/15/19 tablet total) by mouth every 6 17 17 (six) hours as needed for moderate pain for up to 4 days. naproxen (NAPROSYN) 500 Take 1 tablet (500 mg 60 tablet 0 08/15/19 09/14/19 MG tablet total) by mouth 2 (two) 17 17 times a day with meals for 30 days. Active Problems Not on file Encounters Date Type Specialty Care Team Description 08/14/2016 Emergency Emergency Medicine Adrian Salgado MD Contusion of left hip, initial encounter (Primary Dx); Back contusion, left, initial encounter after 07/17/2016 Social History Tobacco Use Types Packs/Day Years Used Date Never Smoker Alcohol Use Drinks/Week oz/Week Comments No Sex Assigned at Date Recorded Not on file Last Filed Vital Signs Vital Sign Reading Time Taken Blood Pressure 121/78 08/14/2016 2:15 PM CDT Pulse 83 08/14/2016 2:15 PM CDT Temperature 36.9 C (98.5 F) 08/14/2016 2:15 PM CDT Respiratory Rate 16 08/14/2016 2:15 PM CDT Oxygen Saturation 92% 08/14/2016 2:15 PM CDT Inhaled Oxygen - - Concentration Weight 150 kg (330 lb) 08/14/2016 11:58 AM CDT Height 177.8 cm (5' 10") 08/14/2016 11:58 AM CDT Body Mass Index 47.35 08/14/2016 11:58 AM CDT Plan of Treatment Health Maintenance Due Date Last Done Comments INFLUENZA VACCINE 09/11/2017 Results * CT Lumbar Spine Wo Contrast (08/14/2016 1:17 PM) Specimen Performing Laboratory [facility] [address] [place] [address] Narrative Study: CT LUMBAR SPINE WO CONTRAST. HISTORY: fall back pain. COMPARISON:None. TECHNIQUE: Multiple axial CT images of the lumbar spine performed without intravenous contrast. Sagittal and coronal reconstructions performed. CT imaging was performed with iterative reconstruction technique and/or automated exposure control to reduce radiation dose. FINDINGS: The lumbar lordosis is maintained. There are no subluxations. Vertebral body heights are within normal limits. There is no acute fracture. Mild disc space loss present at L2-3 and L3-4 indicating some degenerative change. Some generalized mild canal stenosis probably congenital. No significant foraminal stenosis within limitations of CT. Paravertebral soft tissues are unremarkable. There is some mild atherosclerotic calcification of the abdominal aorta. IMPRESSION: No acute abnormality. [id number] Procedure Note Interface, Radiology Results Incoming - 08/14/2016 1:27 PM CDT Study: CT LUMBAR SPINE WO CONTRAST. HISTORY: fall back pain. COMPARISON:None. TECHNIQUE: Multiple axial CT images of the lumbar spine performed without intravenous contrast. Sagittal and coronal reconstructions performed. CT imaging was performed with iterative reconstruction technique and/or automated exposure control to reduce radiation dose. FINDINGS: The lumbar lordosis is maintained. There are no subluxations. Vertebral body heights are within normal limits. There is no acute fracture. Mild disc space loss present at L2-3 and L3-4 indicating some degenerative change. Some generalized mild canal stenosis probably congenital. No significant foraminal stenosis within limitations of CT. Paravertebral soft tissues are unremarkable. There is some mild atherosclerotic calcification of the abdominal aorta. IMPRESSION: No acute abnormality. [id number] * XR Hip 2-3 View Left (08/14/2016 12:54 PM) Specimen Performing Laboratory [facility] [address] [place] [address] Narrative EXAMINATION:XR HIP 2-3 VIEWS LEFT CLINICAL HISTORY:fall hip pain COMPARISON:None. IMPRESSION: No fracture or dislocation identified. Hip joint space is preserved. Bone mineralization is normal. [id number] Procedure Note Hm Interface, Radiology Results Incoming - 08/14/2016 1:03 PM CDT EXAMINATION: XR HIP 2-3 VIEWS LEFT CLINICAL HISTORY: fall hip pain COMPARISON: None. IMPRESSION: No fracture or dislocation identified. Hip joint space is preserved. Bone mineralization is normal. [id number] after 07/17/2016 Insurance Payer Benefit Subscriber ID Type Phone Address Plan / Group MEDICARE MEDICARE xxxxxxxxxx Medicare [place], [place] [address] Home:
--- OUTSIDE RECORDS SUMMARY | 2017-07-18 11:55 | XMS REPORT ---
Author Author Admin, [facility] Address Unknown Phone Unavailable Allergies, Adverse Reactions, Alerts Allergy Name Reaction Description Start Date Severity Status Provider SHELLFISH swell up,airway cuts off. Critical Active Jing Dupree.O. Conditions or Problems Problem Name Problem Code Onset Date Status Entry Date Provider Comment Standard Description Annotate DEPRESSIVE DISORDER, MAJOR, RECURRENT EPISODE, MODERATE Active Da Vazquez MD Major depressive disorder, recurrent episode, moderate degree ANXIETY DISORDER, UNSPECIFIED Active Sadiq ORELLANAW Anxiety state, unspecified Cellulitis, abdomen 682.2 Active Pilar Swain MD Cellulitis and abscess of trunk COPD, acute exacerbation 491.21 Active Pilar Swain MD Obstructive chronic bronchitis with (acute) exacerbation Low back pain, chronic 724.2 Active Jing Dupree.O. Lumbago Rule out ANGINA, STABLE Active Jing Dupree.O. Other and unspecified angina pectoris CHF 428.0 Active Jing Dupree.O. Congestive heart failure, unspecified DEPRESSION 311 Active Jing Dupree.O. Depressive disorder, not elsewhere classified GERD 530.81 Active Jing Dupree.O. Esophageal reflux HYPERLIPIDEMIA 272.4 Active Jing Dupree.O. Other and unspecified hyperlipidemia HYPERTENSION 401.1 Active Jing Dupree.O. Benign essential hypertension MORBID OBESITY 278.01 Active Jing Stringer D.O. Morbid obesity NICOTINE ADDICTION 305.1 Active Jing Stringer D.O. Tobacco use disorder OBSTRUCTIVE SLEEP APNEA 327.23 Active Jing Stringer D.O. Obstructive sleep apnea (adult) (pediatric) TIA 435.9 Active Jing Stringer D.O. Unspecified transient cerebral ischemia DEPRESSIVE DISORDER, MAJOR, RECURRENT EPISODE, W/ PSYCHOTIC FEATURES 12/17 Inactive Da Vazquez MD DEPRESSIVE DISORDER, MAJOR, RECURRENT EPISODE, W/ PSYCHOTIC FEATURES 12/17 Resolved Da Vazquez MD Medication List Medication Instructions Start Date Stop Date Generic Name NDC Status Provider Patient Instruction SEROQUEL 25 MG ORAL TABLET Take 1 tablet by mouth daily. QUETIAPINE FUMARATE 68163741363 Active Da Vazquez MD Active EFFEXOR XR 150 MG ORAL CAPSULE EXTENDED RELEASE 24 HOUR Take 1 capsule by mouth daily. VENLAFAXINE HCL 55340439564 Active Da Vazquez MD Active LISINOPRIL 20 MG ORAL TABLET Take 1 tablet by mouth daily. LISINOPRIL 27919454860 Active Da Vazquez MD Active METOPROLOL TARTRATE 50 MG ORAL TABLET Take one tablet by mouth twice a day. METOPROLOL TARTRATE 20800298056 Active Da Vazquez MD Active AMBIEN 5 MG ORAL TABLET Take 1 tablet by mouth at bedtime as needed for sleep. ZOLPIDEM TARTRATE 13928253020 Active Da Vazquez MD Active ALBUTEROL SULFATE (2.5 MG/3ML) 0.083% INHALATION NEBULIZATION SOLUTION 1 via Hand held neb every 4 - 6 hours as needed ALBUTEROL SULFATE 38455389226 Active Pilar Swain MD Active PREDNISONE 20 MG ORAL TABLET Take 2 tablets by mouth daily for 5 days PREDNISONE 16592834359 Active Pilar Swain MD Active TYLENOL WITH CODEINE #3 300-30 MG ORAL TABLET Take one tablet by mouth every 6 hours as needed for pain ACETAMINOPHEN-CODEINE 66829857202 Active Pilar Swain MD Active ATORVASTATIN CALCIUM 40 MG ORAL TABLET 1 tab By Mouth daily ATORVASTATIN CALCIUM 31052578751 Active Amol Devine MD Active NAPROXEN 500 MG ORAL TABLET 1 by mouth twice a day as needed for pain and inflammation NAPROXEN 14368438721 Active Amol Devine MD Active ASPIRIN 81 MG ORAL TABLET 1 by mouth every day ASPIRIN 30749608348 Active Amol Devine MD Active LASIX 40 MG ORAL TABLET 1 by mouth Twice a Day FUROSEMIDE 16278873750 Active 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 EFFEXOR XR 75 MG ORAL CAPSULE EXTENDED RELEASE 24 HOUR VENLAFAXINE HCL Inactive EFFEXOR XR 37.5 MG ORAL CAPSULE EXTENDED RELEASE 24 HOUR Take 1 capsule by mouth daily. EFFEXOR XR 37.5 MG ORAL CAPSULE EXTENDED RELEASE 24 HOUR VENLAFAXINE HCL Inactive ZOLOFT 100 MG ORAL TABLET Take 1 tablet by mouth daily for 2 weeks, then take 1 1/2 tablets daily. ZOLOFT 100 MG ORAL TABLET 814752 SERTRALINE HCL Inactive SERTRALINE HCL 50 MG ORAL TABLET Take 1/2 tab by mouth daily for 1 week, then take 1 tablet daily. SERTRALINE HCL 50 MG ORAL TABLET 480793 SERTRALINE HCL Inactive DOXYCYCLINE HYCLATE 100 MG ORAL CAPSULE 1 by mouth twice a day DOXYCYCLINE HYCLATE 100 MG ORAL CAPSULE 1755464 DOXYCYCLINE HYCLATE Inactive HYDROXYZINE HCL 50 MG ORAL TABLET 1 by mouth three times a day as needed 2014 HYDROXYZINE HCL 50 MG ORAL TABLET 706363 HYDROXYZINE HCL Inactive SEROQUEL 200 MG ORAL TABLET one tablet at nighttime SEROQUEL 200 MG ORAL TABLET 903608 QUETIAPINE FUMARATE Inactive AMBIEN 10 MG ORAL TABLET 1 by mouth nightly at bedtime as needed for insomnia AMBIEN 10 MG ORAL TABLET 960446 ZOLPIDEM TARTRATE Inactive BUSPIRONE HCL 15 MG ORAL TABLET 1 by mouth twice a day BUSPIRONE HCL 15 MG ORAL TABLET 514664 BUSPIRONE HCL Inactive CELEXA 40 MG ORAL TABLET 1 by mouth every day CELEXA 40 MG ORAL TABLET 908426 CITALOPRAM HYDROBROMIDE Inactive LISINOPRIL 5 MG ORAL TABLET 1 by mouth every day LISINOPRIL 5 MG ORAL TABLET 941826 LISINOPRIL Inactive SIMVASTATIN 40 MG ORAL TABLET 1 by mouth every night SIMVASTATIN 40 MG ORAL TABLET 897428 SIMVASTATIN Inactive EFFEXOR XR 75 MG ORAL CAPSULE EXTENDED RELEASE 24 HOUR Take 1 capsule by mouth daily. VENLAFAXINE HCL 25230327476 No Longer Active Da Vazquez MD Active EFFEXOR XR 37.5 MG ORAL CAPSULE EXTENDED RELEASE 24 HOUR Take 1 capsule by mouth daily. VENLAFAXINE HCL 75992007777 No Longer Active Da Vazquez MD Active ZOLOFT 100 MG ORAL TABLET Take 1 tablet by mouth daily for 2 weeks, then take 1 1/2 tablets daily. SERTRALINE HCL 86854784752 No Longer Active Da Vazquez MD Active SERTRALINE HCL 50 MG ORAL TABLET Take 1/2 tab by mouth daily for 1 week, then take 1 tablet daily. SERTRALINE HCL 70770479506 No Longer Active Da Vazquez MD Active DOXYCYCLINE HYCLATE 100 MG ORAL CAPSULE 1 by mouth twice a day DOXYCYCLINE HYCLATE 40323910548 No Longer Active Pilar Swain MD Active HYDROXYZINE HCL 50 MG ORAL TABLET 1 by mouth three times a day as needed 2014 HYDROXYZINE HCL 65829601713 No Longer Active Da Vazquez MD Active SEROQUEL 200 MG ORAL TABLET one tablet at nighttime QUETIAPINE FUMARATE 56507549251 No Longer Active Pilar Swain MD Active AMBIEN 10 MG ORAL TABLET 1 by mouth nightly at bedtime as needed for insomnia ZOLPIDEM TARTRATE 62629991347 No Longer Active Da Vazquez MD Active BUSPIRONE HCL 15 MG ORAL TABLET 1 by mouth twice a day BUSPIRONE HCL 55305214977 No Longer Active Pilar Swain MD Active CELEXA 40 MG ORAL TABLET 1 by mouth every day CITALOPRAM HYDROBROMIDE 59417519542 No Longer Active Pilar Swain MD Active LISINOPRIL 5 MG ORAL TABLET 1 by mouth every day LISINOPRIL 06494751765 No Longer Active Da Vazquez MD Active SIMVASTATIN 40 MG ORAL TABLET 1 by mouth every night SIMVASTATIN 98688208743 No Longer Active Jing Stringer D.O. Active Vital Signs Date Name Value Unit Range Description blood pressure, diastolic 82 mm[Hg] BP milton blood pressure, systolic 133 mm[Hg] BP sys height E&M 70 [in_us] Bdy height pulse rate E&M 71 /min Heart rate weight E&M 305.25 [lb_av] Weight Measured blood pressure, diastolic 81 mm[Hg] BP milton blood pressure, systolic 136 mm[Hg] BP sys height E&M 70 [in_us] Bdy height pulse rate E&M 90 /min Heart rate weight E&M 301.60 [lb_av] Weight Measured blood pressure, diastolic 81 mm[Hg] BP milton blood pressure, systolic 131 mm[Hg] BP sys height E&M 70 [in_us] Bdy height pulse rate E&M 103 /min Heart rate weight E&M 295 [lb_av] Weight Measured blood pressure, diastolic 62 mm[Hg] BP milton blood pressure, systolic 115 mm[Hg] BP sys height E&M 70 [in_us] Bdy height pulse rate E&M 68 /min Heart rate weight E&M 298 [lb_av] Weight Measured blood pressure, diastolic 72 mm[Hg] BP milton blood pressure, systolic 120 mm[Hg] BP sys height E&M 70 [in_us] Bdy height pulse rate E&M 71 /min Heart rate weight E&M 320.40 [lb_av] Weight Measured blood pressure, diastolic 84 mm[Hg] BP milton blood pressure, systolic 135 mm[Hg] BP sys height E&M 70 [in_us] Bdy height pulse rate E&M 70 /min Heart rate weight E&M 160.38 [lb_av] Weight Measured blood pressure, diastolic 75 mm[Hg] BP milton blood pressure, systolic 122 mm[Hg] BP sys height E&M 70 [in_us] Bdy height pulse rate E&M 114 /min Heart rate weight E&M 318.20 [lb_av] Weight Measured blood pressure, diastolic 76 mm[Hg] BP milton blood pressure, systolic 112 mm[Hg] BP sys height E&M 70 [in_us] Bdy height pulse rate E&M 98 /min Heart rate weight E&M 332.60 [lb_av] Weight Measured Diagnostic Results Date Name Value Unit Range Description Lab Report: Comp. Metabolic Panel (14) - Chemistry calcium, serum 9.0 mg/dL 8.7-10.2 Lab Report: CBC With Differential/Platelet, Lipid Panel, Hemoglobin A1c, ... - Hematology basophils as percent of blood leukocytes 0 % lymphocyte count, blood, automated 1.4 X10E3/UL 10*3/mm3 0.7- 3.1 Lab Report: Comp. Metabolic Panel (14) - Chemistry urea nitrogen, blood 5 mg/dL 6-24 Lab Report: CBC With Differential/Platelet, Lipid Panel, Hemoglobin A1c, ... - Hematology monocyte count, blood, automated 1.2 X10E3/UL 10*3/uL 0.1-0.9 Lab Report: Comp. Metabolic Panel (14) - Chemistry urea nitrogen/creatinine ratio, serum 9 9-20 Lab Report: CBC With Differential/Platelet, Lipid Panel, Hemoglobin A1c, ... - Chemistry immature granulocytes, percentage of total cells, blood 0 % Lab Report: Comp. Metabolic Panel (14) - Genetics/fertility eGFR if 151 mL/min/1.73m2 >59 Lab Report: Comp. Metabolic Panel (14) - Chemistry creatinine, serum 0.53 mg/dL 0.76-1.27 chloride, serum 95 mmol/L 97-108 Lab Report: CBC With Differential/Platelet, Lipid Panel, Hemoglobin A1c, ... - Hematology mean corpuscular volume, RBC 86 fL 79-97 Lab Report: CBC With Differential/Platelet, Lipid Panel, Hemoglobin A1c, ... - Chemistry triglyceride, serum, fasting 234 mg/dL 0-149 Lab Report: CBC With Differential/Platelet, Lipid Panel, Hemoglobin A1c, ... - Hematology lymphocytes as percent of blood leukocytes 11 % erythrocyte (RBC) count 5.97 X10E6/UL 10*6/mm3 4.14-5.80 Lab Report: Comp. Metabolic Panel (14) - Chemistry Estimated Glomerular Filtration Rate (calc) 130 mL/min/1.73m2 > 59 Lab Report: CBC With Differential/Platelet, Lipid Panel, Hemoglobin A1c, ... - Hematology platelet count 272 X10E3/UL 10*3/mm3 150-379 Lab Report: Comp. Metabolic Panel (14) - Chemistry carbon dioxide, venous blood 33 mmol/L 18- Lab Report: CBC With Differential/Platelet, Lipid Panel, Hemoglobin A1c, ... - Hematology red blood cell distribution width 14.1 % 12.3-15.4 Lab Report: Comp. Metabolic Panel (14) - Chemistry protein, total, serum 6.1 g/dL 6.0-8.5 sodium, serum 143 mmol/L 134-144 Lab Report: CBC With Differential/Platelet, Lipid Panel, Hemoglobin A1c, ... - Chemistry HDL cholesterol, serum 34 mg/dL >39 hemoglobin A1C, blood, as % of total hemoglobin 5.2 % 4.8-5.6 Lab Report: Comp. Metabolic Panel (14) - Chemistry albumin/globulin ratio, serum 1.9 1.1-2.5 Lab Report: CBC With Differential/Platelet, Lipid Panel, Hemoglobin A1c, ... - Hematology eosinophils as percent of blood leukocytes 0 % Lab Report: Comp. Metabolic Panel (14) - Chemistry alkaline phosphatase, serum 98 U/L 39-117 Lab Report: CBC With Differential/Platelet, Lipid Panel, Hemoglobin A1c, ... - Chemistry Absolute Neutrophils 9.5 X10E3/UL 10*3/uL 1.4-7.0 Lab Report: CBC With Differential/Platelet, Lipid Panel, Hemoglobin A1c, ... - Hematology basophil count, absolute 0.0 x10E3/uL 0.0-0.2 Lab Report: Comp. Metabolic Panel (14) - Chemistry alanine aminotransferase (SGPT), serum 10 U/L 0-44 Lab Report: CBC With Differential/Platelet, Lipid Panel, Hemoglobin A1c, ... - Hematology Eosinophil Absolute Count 0.1 X10E3/UL 10*3/uL 0.0-0.4 Lab Report: CBC With Differential/Platelet, Lipid Panel, Hemoglobin A1c, ... - Chemistry LDL cholesterol, serum 158 mg/dL 0-99 Lab Report: CBC With Differential/Platelet, Lipid Panel, Hemoglobin A1c, ... - Hematology monocytes as percent of blood leukocytes 10 % Lab Report: CBC With Differential/Platelet, Lipid Panel, Hemoglobin A1c, ... - Chemistry cholesterol, serum 239 mg/dL 100-199 Lab Report: CBC With Differential/Platelet, Lipid Panel, Hemoglobin A1c, ... - Hematology mean corpuscular hemoglobin, RBC 28.8 pg 26.6-33.0 Lab Report: Comp. Metabolic Panel (14) - Chemistry bilirubin, serum, total 0.4 mg/dL 0.0-1.2 Lab Report: CBC With Differential/Platelet, Lipid Panel, Hemoglobin A1c, ... - Hematology mean corpuscular hemoglobin concentration, RBC 33.6 G/DL % 31.5- 35.7 hemoglobin, blood 17.2 g/dL 12.6-17.7 neutrophils as percent of blood leukocytes 79 % leukocyte count, blood 12.2 X10E3/UL 10*3/mm3 3.4-10.8 hematocrit, blood 51.2 % 37.5-51.0 Lab Report: Comp. Metabolic Panel (14) - Chemistry blood glucose, random 82 mg/dL 65-99 potassium, serum 4.3 mmol/L 3.5-5.2 globulin, serum 2.1 1.5-4.5 aspartate aminotransferase (SGOT), serum 11 U/L 0-40 Lab Report: CBC With Differential/Platelet, Lipid Panel, Hemoglobin A1c, ... - Chemistry thyroid stimulating hormone, serum 1.410 u[iU]/mL 0.450-4.500 Lab Report: Comp. Metabolic Panel (14) - Chemistry albumin, serum 4.0 g/dL 3.5-5.5 Lab Report: CBC With Differential/Platelet, Lipid Panel, Hemoglobin A1c, ... - Chemistry very low density lipoproteins 47 mg/dL 5-40 Encounters Date Encounter Provider Code Facility 14:28:37 CDT Est Patient Exp Problem - 74799 Da Vazquez MD CPT-06704 [facility] 08:46:37 CDT Est Patient Exp Problem - 98072 Da Vazquez MD CPT-36682 [facility] 09:07:13 CDT Est Patient Exp Problem - 02153 Da Vazquez MD CPT-68431 [facility] 09:22:34 ENGINEERING DESIGN SUPERVISOR Est Patient Exp Problem - 86786 Da Vazquez MD CPT-94961 [facility] 10:29:36 ENGINEERING DESIGN SUPERVISOR Est Patient Detailed - 68354 Da Vazquez MD CPT-50291 [facility] 09:22:20 ENGINEERING DESIGN SUPERVISOR Est Patient Exp Problem - 41540 Da Vazquez MD CPT-45120 [facility] 09:12:24 ENGINEERING DESIGN SUPERVISOR Est Patient Exp Problem - 14483 Da Vazquez MD CPT-79111 [facility] 06:13:43 ENGINEERING DESIGN SUPERVISOR Est Patient Exp Problem - 97304 Pilar Swain MD CPT-54246 [facility] 11:09:52 ENGINEERING DESIGN SUPERVISOR Est Patient Exp Problem - 89901 Pilar Swain MD CPT-92212 [facility] 14:08:30 ENGINEERING DESIGN SUPERVISOR Est Patient Exp Problem - 76231 Amol Devine MD CPT-42095 [facility] 22:14:07 CDT Ofc Vst, Est Level III Pilar Swain MD CPT-29856 [facility] 12:56:29 CDT Est Patient Exp Problem - 81959 Jing Stringer D.O. CPT-30506 [facility] 11:29:16 ENGINEERING DESIGN SUPERVISOR New Patient Detailed - 03106 Jing Stringer D.O. CPT- 76101 [facility] Procedures Code Procedure Name Date Entry Date Standard Description CPT-26574 Diagnostic evaluation with medical - 51395 11:27:21 ENGINEERING DESIGN SUPERVISOR CPT-77139 Diagnostic evaluation with medical - 73930 11:55:48 ENGINEERING DESIGN SUPERVISOR
--- OUTSIDE RECORDS SUMMARY | 2017-07-18 11:55 | XMS REPORT | Clinical Summary ---
Author Author [facility] Address Unknown Phone Unavailable Care Team Providers Care Assistant Scientist Name Role Phone PCP Unavailable Allergies Not on File Current Medications Not on file Active Problems Not on file Social History Tobacco Use Types Packs/Day Years Used Date Never Assessed Sex Assigned at Date Recorded Not on file Last Filed Vital Signs Not on file Plan of Treatment Not on file Results Not on fileafter 07/17/2016
--- OUTSIDE RECORDS SUMMARY | 2017-07-18 11:55 | XMS REPORT ---
Author Author [facility] Address Unknown Phone Unavailable Care Team Providers Care Teacher Dramatics Name Role Phone BHUMI SANCHEZ Unavailable Unavailable Problems This patient has no known problems. Allergies, Adverse Reactions, Alerts This patient has no known allergies or adverse reactions. Medications This patient has no known medications. Results Test Description Test Time Test Comments Text Results Atomic Results Result Comments CHEST SINGLE (PORTABLE) [place] [address] Patient Name: FABRICIO STANLEY MR #: [id number] : 1970 Age/Sex: 47/M Req #: [id number] Adm Physician: BHUMI SANCHEZ MD Ordered by: DORA REYES MD Report #: [id number] Location: [facility] Room/Bed: [place] [address] Procedure: [id number] DX/CHEST SINGLE (PORTABLE) Exam Date: Exam Time: 0645 REPORT STATUS: Signed Examination: Single AP view of the chest. COMPARISON: 03/09/2017 INDICATION: Shortness of breath DISCUSSION: Lines/tubes: None. Lungs: Pulmonary venous congestion with interstitial edema. Pleura: Fluid within the minor fissure. Heart and mediastinum: Heart size enlarged. Enlarged pulmonary arteries. Bones and soft tissues: No acute bony abnormalities. IMPRESSION: 1. Cardiomegaly with stable pulmonary edema Signed by: Dr. Lore Baig M.D. on 03/10/2017 7:34 AM Dictated By: LORE BAIG MD 3 Transcribed By: PAPITO on 03/10/17733 COPY TO: DORA REYES MD CT CHEST W [place] [address] Patient Name: FABRICIO STANLEY MR #: [id number] : 1970 Age/Sex: 47/M Req #: [id number] Adm Physician: Ordered by: MELISSA VALDIVIA MD Report #: [id number] Location: ER Room/Bed: Procedure: [id number] CT/CT CHEST W Exam Date: 03/09/17 Exam Time: 2050 REPORT STATUS: Signed EXAM: CT CHEST W DATE: 03/09/2017 6:58 PM INDICATION: Chest pain, positive d-dimer COMPARISON: None TECHNIQUE: Multidetector CT scanning of the chest was performed. Coronal and sagittal multiplanar reformations were obtained. IV Contrast: 100 ml Isovue 370/ 300 FINDINGS: Image quality is degraded by body habitus and suboptimal contrast attenuation within the pulmonary arterial system, which precludes adequate assessment for the exclusion of pulmonary artery embolism. No evidence of large central/main or lobar pulmonary embolism. Main pulmonary artery is enlarged, 3.7 cm. LUNGS AND PLEURA: No consolidations or edema. Nonspecific 5 mm left upper lobe pulmonary nodule in image 32. No effusions or pneumothorax. HEART, MEDIASTINUM, VESSELS: Cardiomegaly with small pericardial effusion. Prominent mediastinal, axillary nodes, likely reactive. UPPER ABDOMEN: Unremarkable. MUSCULOSKELETAL: No acute findings. IMPRESSION: 1. Study degraded by suboptimal contrast attenuation. No evidence of large central/main or lobar pulmonary embolism. 2. Cardiomegaly with small pericardial effusion. 3. Enlarged main pulmonary artery which can be seen with pulmonary arterial hypertension. Signed by: Dr Aliza Bryant MD on 03/09/2017 9:48 PM Dictated By: ALIZA BRYANT MD 47 Transcribed By: PAPITO on 03/09/172147 COPY TO: MELISSA VALDIVIA MD CHEST SINGLE (PORTABLE) [place] [address] Patient Name: FABRICIO STANLEY MR #: [id number] : 1970 Age/Sex: 47/M Req #: [id number] Adm Physician: Ordered by: REBEKAH CONRAD NP Report # : [id number] Location: ER Room/Bed: Procedure: [id number] DX/CHEST SINGLE (PORTABLE) Exam Date: 03/09/17 Exam Time: 1700 REPORT STATUS: Signed EXAMINATION: CHEST SINGLE ( PORTABLE) INDICATION: COMPARISON: Chest radiograph on 08/22/2011 FINDINGS: AP view TUBES and LINES: None. LUNGS: Lungs are well inflated. Bilateral interstitial edema. Azygous fissure, unchanged. PLEURA: No pleural effusion or pneumothorax. HEART AND MEDIASTINUM: Mild enlargement of the cardiac silhouette.. BONES AND SOFT TISSUES: No acute osseous lesion. Soft tissues are unremarkable. UPPER ABDOMEN: No free air under the diaphragm. IMPRESSION: Bilateral interstitial edema. Signed by: Dr. Estee Fisher M.D. on 03/09/2017 5:17 PM Dictated By: ESTEE FISHER MD 1717 Transcribed By: PAPITO on 03/09/171716 COPY TO: REBEKAH CONRAD NP CT BRAIN WO [place] [address] Patient Name: FABRICIO STANLEY MR #: [id number] : 1970 Age/Sex: 47/M Req #: [id number] Adm Physician: Ordered by: REBEKAH CONRAD NP Report #: [id number] Location: ER Room/Bed: Procedure: [id number] CT/CT BRAIN WO Exam Date: 03/09/17 Exam Time: 1709 REPORT STATUS: Signed EXAMINATION: Head CT HISTORY: These images , head pressure for the last 2 days COMPARISON: None. TECHNIQUE: Multidetector axial images were obtained without contrast from the foramen magnum to the vertex . The images were reconstructed using brain and bone algorithms. Thin section brain images were reformatted into coronal and sagittal planes. Intravenous contrast: None. Motion/streaking artifact limits the evaluation of the skull base and posterior cranial fossa. FINDINGS: Parenchyma: 1. No abnormal densities. 2. No mass or hemorrhage. No CT evidence of acute territorial vascular insult. Extra-axial spaces:No abnormal density. No extra-axial fluid collections Brain volume: Normal for age. Ventricles: No hydrocephalus or displacement. Arteries: No density suggestive of thrombus. Dural sinuses: No abnormal density. Extra-axial spaces: No abnormal density. Foramen magnum: No mass, Chiari malformation, or basilar invagination. Sella: No obvious mass. Paranasal/mastoid sinuses : Imaged portions unremarkable. Skull/Scalp: No lytic or blastic lesions. No fractures. IMPRESSION: Normal head CT. Signed by: Dr. Kimberly Loza M.D. on 03/09/2017 5:27 PM Dictated By: KIMBERLY LOZA MD 172 Transcribed By: PAPITO on 03/09/171726 COPY TO: REBEKAH CONRAD NP
--- OUTSIDE RECORDS SUMMARY | 2017-07-18 11:55 | XMS REPORT | Continuity of Care Document ---
Author Author [facility] Organization [facility] Address [address] [place] [address] Phone Unavailable Care Team Providers Care Internal Audit Senior Manager Name Role Phone BHUMI SANCHEZ MD PCP Insurance Providers Guarantor Fabricio Villafuerte Address [address] [place] [address] Email PT DECLINED Payer Medicare A & B Policy Number [id number] Subscriber's Name Fabricio Villafuerte Relationship 18 Self / Same As Patient Effective Date 16 Advance Directives Directive Response Recorded Date/Time Does the patient have an advance directive? Yes 03/10/17 10:00pm If yes, is advance directive on file with [facility]? No 03/10/17 10:00pm If not on file with [facility] will patient provide a copy? Yes 03/10/17 10:00pm Do you have a Directive to Physician? No 03/09/17 6:55pm Do you have a Medical Power of Manufacturer Agent? No 01/27/18 6:55pm Do you have an out of hospital Do Not Resuscitate Order? No 03/09/17 6:55pm Do you have any special needs we should be aware of? No 03/09/17 6:55pm Do you have a support person here with you today? No 03/09/17 6:55pm Did patient receive Notice of Privacy Practices? Yes 03/09/17 6:56pm Did patient receive patient rights and responsibilities? Yes 03/09/17 6:56pm Problems Medical Problem Onset Date Status CHF (congestive heart failure) Unknown COPD (chronic obstructive pulmonary disease) Unknown Hypoxia Unknown Respiratory failure Unknown Medications Current Home Medications Medication Dose Units Route Directions Days Qty Instructions Start Date Albuterol Sulfate 0.63 Mg/3 Ml Vial.neb 0.083 Furosemide 40 Mg Tablet 40 Mg Oral Twice A Day 30 Tab Levofloxacin (Levaquin) 500 Mg Tablet 500 Mg Oral Daily Lisinopril 10 Mg Tablet 20 Mg Oral Daily 30 Tab Metoprolol Tartrate 50 Mg Tablet 100 Mg Oral Twice A Day Potassium Chloride 20 Meq Tab.er.prt 20 Meq Oral Twice A Day Prednisone 5 Mg Tablet 5 Mg Oral Use As Directed Quetiapine Fumarate 25 Mg Tablet 25 Mg Oral Daily Zolpidem Tartrate (Ambien) 5 Mg Tablet 5 Mg Oral Bedtime as needed for Sleep 30 Tab Past Home Medications Medication Directions Ordered Status Benicar , 40 Mg Oral Daily Discontinued Clindamycin Hcl 300 Mg Capsule, 300 Mg Oral Every 8 Hours Discontinued Colchicine 0.6 Mg Tablet, 0.6 Mg Oral Daily Discontinued Pantoprazole Sod (Protonix Iv) 40 Mg Vial, 40 Mg Oral Daily Discontinued Potassium Chloride (K Dur*) 10 Meq Tabcr, 10 Meq Oral Daily Discontinued Potassium Chloride (K-Dur) 20 Meq Tab.er.prt, Discontinued Tiotropium (Spiriva Handihaler) 18 Mcg Inhpwd, 50.5 Inhalation Daily Discontinued Social History Social History Problem Response Recorded Date/Time Onset Date Status Hx Psychiatric Problems Yes 03/10/2017 10:00pm Not Applicable Not Applicable Hx Eating Disorder Yes 03/10/2017 10:00pm Not Applicable Not Applicable Hx Substance Use Disorder Y - SMOKES MARIJUANA AT NIGHT FOR BACK PAIN 2017 10:00pm Not Applicable Not Applicable Hx Depression Yes 03/10/2017 10:00pm Not Applicable Not Applicable Hx Alcohol Use Yes 03/10/2017 10:00pm Not Applicable Not Applicable Hx Substance Use Treatment No 03/10/2017 10:00pm Not Applicable Not Applicable Hx Physical Abuse No 03/10/2017 10:00pm Not Applicable Not Applicable Smoking Status Start Date Stop Date Current every day smoker Hospital Discharge Instructions No hospital discharge instruction information available. Plan of Care Discharge Date 03/13/17 3:35pm Disposition HOME, SELF-CARE Instructions/Education Provided COPD Congestive Heart Failure Prescriptions See Medication Section Additional Instructions/Education 2 GRAM SODIUM RESTRICTED DIET 2 L FLUID INTAKE PER 24 HOURS Functional Status Query Response Date Recorded FUNCTIONAL STATUS . March 11, 2017 1:48pm Assistive Devices None March 10, 2017 10:00pm Ambulation Ability Independent March 10, 2017 10:00pm Toileting Ability Independent March 13, 2017 11:46am Allergies, Adverse Reactions, Alerts Allergen Type Severity Reaction Status Last Updated Shellfish Allergy Unknown Active 03/09/17 Immunizations No immunization information available. Vital Signs Acute Vital Signs Vital Response Date/Time Temperature (Fahrenheit) 97.3 degrees F (97.6 - 99.5) 03/13/2017 11:47am Pulse Pulse Rate (adult) 58 bpm (60 - 90) 03/13/2017 2:43pm Pulse Pulse Rate (adult) 67 bpm (60 - 90) 03/13/2017 2:43pm Pulse Pulse Rate (adult) 67 bpm (60 - 90) 03/13/2017 2:43pm Pulse Pulse Rate (adult) 67 bpm (60 - 90) 03/13/2017 2:43pm Pulse Pulse Rate (adult) 67 bpm (60 - 90) 03/13/2017 2:43pm Respiratory Rate 20 bpm (12 - 24) 03/13/2017 2:43pm Blood Pressure 142/83 mm Hg 03/13/2017 11:47am Height 5 ft 10 in 03/09/2017 4:07pm Weight 325 lb 03/13/2017 2:43am Body Mass Index 46.6 kg/m^2 03/13/2017 2:43am Results Laboratory Results Test Name Result Units Flags Reference Collection Date/Time Result Date/ Time Comments White Blood Count 13.92 x10e3/uL H 4.8-10.8 03/11/2017 5:20am 2017 5:58am Red Blood Count 4.82 x10e6/uL 4.3-5.7 03/11/2017 5:03/11/2017 5: 58am Hemoglobin 15.5 g/dL 14.0-18.0 03/11/2017 5:03/11/2017 5:58am Hematocrit 48.9 % 38.2-49.6 03/11/2017 5:03/11/2017 5:58am Mean Corpuscular Volume 101.5 fL H 81-99 03/11/2017 5:03/11/2017 5: 58am Mean Corpuscular Hemoglobin 32.2 pg H 28-32 03/11/2017 5:2017 5:58am Mean Corpuscular Hemoglobin Concent 31.7 g/dL 31-35 03/11/2017 5:03/11/2017 5:58am Red Cell Distribution Width 14.3 % 11.7-14.4 03/11/2017 5:2017 5:58am Platelet Count 266 x10e3/uL 140-360 03/11/2017 5:03/11/2017 5: 58am Neutrophils (%) (Auto) 91.7 % H 38.7-80.0 03/11/2017 5:03/11/2017 5 :58am Lymphocytes (%) (Auto) 4.7 % L 18.0-39.1 03/11/2017 5:03/11/2017 5: 58am Monocytes (%) (Auto) 2.9 % L 4.4-11.3 03/11/2017 5:03/11/2017 5: 58am Eosinophils (%) (Auto) 0.0 % 0.0-6.0 03/11/2017 5:03/11/2017 5: 58am Basophils (%) (Auto) 0.1 % 0.0-1.0 03/11/2017 5:03/11/2017 5:58am IM GRANULOCYTES % 0.6 % 0.0-1.0 03/11/2017 5:03/11/2017 5:58am Neutrophils # (Auto) 12.8 H 2.1-6.9 03/11/2017 5:03/11/2017 5: 58am Lymphocytes # (Auto) 0.7 L 1.0-3.2 03/11/2017 5:20am 03/11/2017 5: 58am Monocytes # (Auto) 0.4 0.2-0.8 03/11/2017 5:20am 03/11/2017 5:58am Eosinophils # (Auto) 0.0 0.0-0.4 03/11/2017 5:20am 03/11/2017 5:58am Basophils # (Auto) 0.0 0.0-0.1 03/11/2017 5:20am 03/11/2017 5:58am Absolute Immature Granulocyte (auto 0.08 x10e3/uL 0-0.1 03/11/2017 5: 20am 03/11/2017 5:58am Prothrombin Time 12.6 seconds 11.9-14.5 03/09/2017 4:34pm 03/09/2017 6: 35pm Prothromb Time International Ratio 0.90 03/09/2017 4:34pm 2017 6:35pm Oral Anticoagulant Therapy INR Values: 1. Low Intensity Therapy 1.5 - 2.0 2. Moderate Intensity Therapy 2.0 - 3.0 3. High Intensity Therapy(1) 2.5 - 3.5 4. High Intensity Therapy(2) 3.0 - 4.0 5. Panic Value INR > 5.0 Activated Partial Thromboplast Time 30.3 seconds 23.8-35.5 03/09/2017 4: 34pm 03/09/2017 6:35pm D-Dimer Quantitative (PE/DVT) 0.98 ug/mLFEU H 0.00-0.45 03/09/2017 4: 34pm 03/09/2017 6:49pm Urine Color YELLOW YELLOW 03/10/2017 12:10am 03/10/2017 12:23am Urine Clarity CLEAR CLEAR 03/10/2017 12:10am 03/10/2017 12:23am Urine Specific [place] 1.010 1.010-1.025 03/10/2017 12:10am 2017 12:23am Urine pH 7 5 - 7 03/10/2017 12:10am 03/10/2017 12:23am Urine Leukocyte Esterase NEGATIVE NEGATIVE 03/10/2017 12:10am 2017 12:23am Urine Nitrite NEGATIVE NEGATIVE 03/10/2017 12:10am 03/10/2017 12: 23am Urine Protein NEGATIVE NEGATIVE 03/10/2017 12:10a03/10/2017 12: 23am Urine Glucose (UA) NEGATIVE NEGATIVE 03/10/2017 12:10a03/10/2017 12 :23am Urine Ketones NEGATIVE NEGATIVE 03/10/2017 12:10a03/10/2017 12: 23am Urine Urobilinogen 0.2 mg/dL 0.2 - 1 03/10/2017 12:10a03/10/2017 12: 23am Urine Bilirubin NEGATIVE NEGATIVE 03/10/2017 12:10a03/10/2017 12: 23am Urine Blood NEGATIVE NEGATIVE 03/10/2017 12:10a03/10/2017 12:23am Urine WBC 0-5 /HPF 0-5 03/10/2017 12:10a03/10/2017 12:29am Urine RBC 0-5 /HPF 0-5 03/10/2017 12:10am 03/10/2017 12:29am Urine Bacteria FEW /HPF NONE 03/10/2017 12:10a03/10/2017 12:29am Urine Epithelial Cells FEW /LPF NONE 03/10/2017 12:10a03/10/2017 12: 29am Sodium Level 142 mmol/L 136-145 03/13/2017 5:41am 03/13/2017 6:38am Potassium Level 3.6 mmol/L 3.5-5.1 03/13/2017 5:41am 03/13/2017 6:38am Chloride Level 95 mmol/L L 98-107 03/13/2017 5:41am 03/13/2017 6:38am Carbon Dioxide Level 38 mmol/L H 22-03/13/2017 5:41am 03/13/2017 6: 38am Anion Gap 12.6 mmol/L 8-16 03/13/2017 5:41am 03/13/2017 6:38am Blood Urea Nitrogen 23 mg/dL 7-03/13/2017 5:41am 03/13/2017 6:38am Creatinine 0.71 mg/dL L 0.72-1.25 03/13/2017 5:41am 03/13/2017 6:38am BUN/Creatinine Ratio 32 H 6-25 03/13/2017 5:41am 03/13/2017 6:38am Estimat Glomerular Filtration Rate > 60 ML/MIN 60- 03/13/2017 5:41 6:38am Ranges were taken from the National Kidney Disease Education Program and the National Kid[employer] Foundation literature. Reference ranges: 60 or greater: Normal 16-59 (for 3 consecutive months): Chronic kidney disease 15 or less: Kidney failure Glucose Level 109 mg/dL 74-118 03/13/2017 5:4103/13/2017 6:38am Calcium Level 9.5 mg/dL 8.4-10.2 03/13/2017 5:4103/13/2017 6:38am Bedside Glucose 91 mg/dL 70-120 03/13/2017 11:34am 03/13/2017 11:55am Meter ID: [id number] Magnesium Level 2.6 MG/DL H 1.3-2.1 03/13/2017 5:4103/13/2017 6:38am Total Bilirubin 0.6 mg/dL 0.2-1.2 03/13/2017 5:4103/13/2017 6:38am Aspartate Amino Transf (AST/SGOT) 13 IU/L 5-34 03/13/2017 5:412017 6:38am Alanine Aminotransferase (ALT/SGPT) 13 IU/L 0-55 03/13/2017 5:41 6:38am Total Protein 6.9 g/dL 6.5-8.1 03/13/2017 5:4103/13/2017 6:38am Albumin 3.3 g/dL L 3.5-5.0 03/13/2017 5:4103/13/2017 6:38am Globulin 3.6 g/dL H 2.3-3.5 03/13/2017 5:4103/13/2017 6:38am Albumin/Globulin Ratio 0.9 0.8-2.0 03/13/2017 5:4103/13/2017 6: 38am Alkaline Phosphatase 69 IU/L 40-150 03/13/2017 5:4103/13/2017 6: 38am B-Type Natriuretic Peptide 62.0 pg/mL 0-100 03/09/2017 4:34pm 2017 6:15pm Creatine Kinase 13 IU/L L 30-200 03/10/2017 6:05am 03/10/2017 6:43am Creatine Kinase MB 0.40 ng/mL 0.00-5.00 03/10/2017 6:05am 03/10/2017 7: 01am Troponin I < 0.001 ng/mL 0-0.300 03/10/2017 6:05am 03/10/2017 7:01am Arterial Blood pH 7.44 H 7.31-7.41 03/10/2017 7:33pm 03/10/2017 7: 43pm Arterial Blood Partial Pressure CO2 62 mmHg H 41-51 03/10/2017 7:33pm 7:43pm Arterial Blood Partial Pressure O2 66 mmHg L 80-105 03/10/2017 7:33pm 7:43pm Arterial Blood HCO3 42 mmol/L H 23-28 03/10/2017 7:33pm 03/10/2017 7: 43pm Arterial Blood Base Excess 17.0 mmol/L H -2 - 3 03/10/2017 7:33pm 2017 7:43pm Arterial Blood Oxygen Saturation 98.0 % 95-98 03/10/2017 7:33pm 2017 7:43pm Procedures Procedure Status Date Provider(s) Computed tomography of brain without radiopaque contrast Active 03/09/17 REBEKAH CONRAD NP Computed tomography of chest with contrast Active 03/09/17 MELISSA VALDIVIA MD Encounters Encounter Location Arrival/Admit Date Discharge/Depart Date Attending Provider Discharged Inpatient [facility] 03/10/17 12:06am 3:35pm BHUMI SANCHEZ MD
[2017-07-18] MEDS ORDERED: SODIUM CHLORIDE 0.9% 1000ML 1,000 ML IV STA ×2 (12:09→14:10)
[2017-07-18] MEDS ORDERED: ASPIRIN 81 MG CHEW TAB PO ONE (12:15)
[2017-07-18] MEDS ORDERED: LIDOCAINE HCL 1% LOCAL INJ 20 ML VIAL INJ ONE (12:45)
--- NOTE | 2017-07-18 12:54 | Diagnostic Imaging Report ---
PROCEDURE: CHEST SINGLE (PORTABLE) COMPARISON: 03/10/2017. INDICATIONS: PASSED OUT, LACERATION TO POSTERIOR WRIST. UPPER BACK PAIN FINDINGS: The lungs are well-inflated. No focal consolidation, pleural effusion, or pneumothorax. Incidental note of an azygous fissure again made. Cardiomegaly with prominence of the interstitium, to a lesser degree than that noted 03/10/2017. No acute osseous abnormality. CONCLUSION: Cardiomegaly with interstitial pulmonary edema, of a lesser degree than that noted 03/10/2017. Dictated by: Emiliano Rodriguez M.D. on 07/18/2017 at 12:57 Electronically approved by: Emiliano Rodriguez M.D. on 07/18/2017 at 12:57
--- NOTE | 2017-07-18 12:56 | Diagnostic Imaging Report ---
PROCEDURE:X-RAY RIGHT FOREARM, TWO VIEWS COMPARISON:None. INDICATIONS:POST FALL. LACERATION TO POSTERIOR WRIST FINDINGS: Bandage material over the distal forearm. No acute, displaced fracture or dislocation. Joint spaces are well-maintained. No gross soft tissue defect or radiopaque foreign body. CONCLUSION: Bandage material over the distal forearm. No acute osseous abnormality or radiopaque soft tissue foreign body. Dictated by: Emiliano Rodriguez M.D. on 07/18/2017 at 12:58 Electronically approved by: Emiliano Rodriguez M.D. on 07/18/2017 at 12:58
--- NOTE | 2017-07-18 12:58 | Diagnostic Imaging Report ---
PROCEDURE:X-RAY RIGHT WRIST, COMPLETE COMPARISON:None. INDICATIONS:POST FALL. LACERATION TO POSTERIOR WRIST FINDINGS: Bandage material over the distal forearm and wrist, dorsal surface. No gross soft tissue defect or radiopaque foreign body. No acute, displaced fracture or dislocation. Appropriate alignment between the distal radius, lunate, and capitate is maintained on the lateral radiograph. Joint spaces are well-maintained. Dystrophic soft tissue calcification in the palm of the hand. . CONCLUSION: Bandage material over the dorsum of the distal forearm and wrist, without gross soft tissue defect, radiopaque foreign body, or underlying osseous abnormality. Dictated by: Emiliano Rodriguez M.D. on 07/18/2017 at 13:01 Electronically approved by: Emiliano Rodriguez M.D. on 07/18/2017 at 13:01
--- NOTE | 2017-07-18 13:02 | Diagnostic Imaging Report ---
Exam: Head CT without contrast History: Trauma, fall Comparison studies: Head CT 03/09/2017 Technique: Axial images were obtained from the skull base to the vertex. Coronal and sagittal images reconstructed from the axial data. Intravenous contrast: None Findings: Scalp: No abnormalities. Bones: No fractures, blastic or lytic lesions. Brain sulci: Appropriate for age. Ventricles: Normal in size and configuration. No hydrocephalus. Extra-axial spaces: No masses, no fluid collection. Parenchyma: No mass, acute hemorrhage or acute cortical vascular insults. Subtle hypodensity along the superior margin of the left putamen is nonspecific. Findings may possibly reflect gliosis or perivascular spaces related to a possible developmental venous anomaly or possibly chronic ischemic insult. Nonemergent brain MRI without/IV contrast could further evaluate as warranted. Sellar/suprasellar region: No abnormalities. Craniocervical junction: Patent foramen magnum. No Chiari one malformation. IMPRESSION: 1. No acute intracranial abnormalities. 2. Unchanged subtle hypodense changes along the superior margin of the left putamen as described. Signed by: Dr. Emiliano Diaz M.D. on 07/18/2017 12:58 PM
[2017-07-18 13:14] LABS: BASOPHILS % 0.2 % (0.0-1.0); EOSINOPHILS % 0.2 % (0.0-6.0); HEMATOCRIT 45.9 % (38.2-49.6); HEMOGLOBIN 16.3 g/dL (14.0-18.0); LYMPHOCYTES # (AUTO) 1.7 (1.0-3.2); LYMPHOCYTES % 8.6 % (18.0-39.1); MEAN CORPUSCULAR HEMOGLOBIN 33.7 pg (28-32); MEAN CORPUSCULAR HGB CONC 35.5 g/dL (31-35); MEAN CORPUSCULAR VOLUME 94.8 fL (81-99); MONOCYTES # (AUTO) 1.1 (0.2-0.8); MONOCYTES % 5.6 % (4.4-11.3); NEUTROPHILS # (AUTO) 16.8 (2.1-6.9); PLATELET COUNT 253 x10e3/uL (140-360); RED BLOOD COUNT 4.84 x10e6/uL (4.3-5.7); RED CELL DISTRIBUTION WIDTH 13.5 % (11.7-14.4)
[2017-07-18 13:24] LABS: AMPHETAMINES SCREEN,URINE NEGATIVE (NEGATIVE); BENZODIAZEPINES SCREEN,URINE NEGATIVE (NEGATIVE); PHENCYCLIDINE SCREEN,URINE NEGATIVE (NEGATIVE)
[2017-07-18 13:25] LABS: INR 0.98; PARTIAL THROMBOPLASTIN TIME 26.7 seconds (23.8-35.5); PROTHROMBIN TIME 12.2 seconds (11.9-14.5)
[2017-07-18 13:28] LABS: BILIRUBIN,URINE NEGATIVE (NEGATIVE); CLARITY,URINE CLEAR (CLEAR); COLOR,URINE YELLOW (YELLOW); KETONES,URINE NEGATIVE (NEGATIVE); LEUKOCYTE ESTERASE ,URINE NEGATIVE (NEGATIVE); NITRITE,URINE NEGATIVE (NEGATIVE); PROTEIN,URINE DIPSTICK 1+ (NEGATIVE); URINE UROBILINOGEN 0.2 mg/dL (0.2 - 1)
[2017-07-18 13:33] LABS: ALANINE AMINOTRANSFERASE 26 IU/L (0-55); ALBUMIN 3.7 g/dL (3.5-5.0); ALBUMIN/GLOBULIN RATIO 1.2 (0.8-2.0); ALKALINE PHOSPHATASE 93 IU/L (40-150); ANION GAP 13.8 mmol/L (8-16); BLOOD UREA NITROGEN 13 mg/dL (7-26); BUN/CREATININE RATIO 18 (6-25); CALCIUM 9.8 mg/dL (8.4-10.2); CARBON DIOXIDE 34 mmol/L (22-29); CHLORIDE 95 mmol/L (98-107); CREATINE KINASE 82 IU/L (30-200); CREATININE, SERUM 0.72 mg/dL (0.72-1.25); EST GLOMERULAR FILTRATION RATE > 60 ML/MIN (60-); GLUCOSE 94 mg/dL (74-118); MAGNESIUM 1.6 MG/DL (1.3-2.1); SODIUM 140 mmol/L (136-145)
[2017-07-18 13:35] LABS: POTASSIUM 2.8 mmol/L (3.5-5.1)
[2017-07-18 13:44] LABS: EPITHELIAL CELLS,URINE FEW /LPF; MUCUS,URINE RARE (RARE)
[2017-07-18] MEDS ORDERED: POTASSIUM CHLORIDE 20 MEQ TAB CR PO NR (14:00)
[2017-07-18] MEDS ORDERED: SODIUM CHLORIDE 0.9% 1000ML 1,000 ML ONE (14:06)
--- NOTE | 2017-07-18 14:11 | Diagnostic Imaging Report ---
Exam: Cervical spine CT without IV contrast History: Trauma, fall Comparison studies: None Technique: Axial images were obtained through the cervical region. Coronal and sagittal images reconstructed from the axial data. Intravenous contrast: None Findings: Atlantoaxial articulation: Intact Alignment: Mild cervical kyphosis. No subluxations. Cervicomedullary junction: No abnormalities. Patent foramen magnum. Soft tissues: No gross abnormalities. Vertebrae: No fractures, neoplasm or infection. Degenerative changes: Mildly degenerated disc with mild loss of disc height from C4 to C7. Small C6-C7 disc osteophyte complex indents the thecal sac but does not result in significant canal stenosis. Mild foraminal stenosis at C6-C7 due to uncovertebral arthrosis. Incidental findings: Partially imaged incidental right azygos lobe. IMPRESSION: 1. No cervical spine fracture or subluxation. 2. Mild degenerative changes as described. 3. Cannot adequately evaluate ligament, spinal cord and or vascular abnormalities cannot be excluded on the basis of this examination Signed by: Dr. Emiliano Diaz M.D. on 07/18/2017 2:08 PM
[2017-07-18] MEDS ORDERED: SODIUM CHLORIDE 0.9% 1000ML 1,000 ML IV ONE (14:15)
== END 2017-07-18 15:15 | disposition home or self-care (01) ==
LOC: ER 11:51
DX: S00.83XA Contusion of other part of head, initial encounter (principal); S51.811A Laceration without foreign body of right forearm, initial encounter; S50.11XA Contusion of right forearm, initial encounter; W01.198A Fall on same level from slipping, tripping and stumbling with subsequent striking against other object, initial encounter; Y99.0 Civilian activity done for income or pay; J18.9 Pneumonia, unspecified organism; I10 Essential (primary) hypertension; J44.9 Chronic obstructive pulmonary disease, unspecified; I50.9 Heart failure, unspecified; Z86.73 Personal history of transient ischemic attack (TIA), and cerebral infarction without residual deficits
CPT/HCPCS: 12002; 36415; 70450; 71045; 72125; 73090; 73110; 80053; 80307; 81001; 82550; 82553; 83605; 83735; 83880; 84484; 85025; 85610; 85730; 87040; 87086; 93005; 99284; J2001; J7030

== ENCOUNTER 2017-07-20 16:05 | Emergency (ER) | payer MEDICARE ==
[~2017-07-20] VITALS: Ht 177.8 cm; Wt 147.4 kg
--- OUTSIDE RECORDS SUMMARY | 2017-07-20 16:09 | XMS REPORT ---
Author Author Admin, [facility] Address Unknown Phone Unavailable Allergies, Adverse Reactions, [...] 1 tablet by mouth daily. QUETIAPINE FUMARATE 19516995642 Active Da Vazquez MD Active EFFEXOR XR 150 MG ORAL CAPSULE EXTENDED RELEASE 24 HOUR Take 1 capsule by mouth daily. VENLAFAXINE HCL 65850509504 Active Da Vazquez MD Active LISINOPRIL 20 MG ORAL TABLET Take 1 tablet by mouth daily. LISINOPRIL 75462612243 Active Da Vazquez MD Active METOPROLOL TARTRATE 50 MG ORAL TABLET Take one tablet by mouth twice a day. METOPROLOL TARTRATE 82518406365 Active Da Vazquez MD Active AMBIEN 5 MG ORAL TABLET Take 1 tablet by mouth at bedtime as needed for sleep. ZOLPIDEM TARTRATE 91108789948 Active Da Vazquez MD Active ALBUTEROL SULFATE (2.5 MG/3ML) 0.083% INHALATION NEBULIZATION SOLUTION 1 via Hand held neb every 4 - 6 hours as needed ALBUTEROL SULFATE 78312080468 Active Pilar Swain MD Active PREDNISONE 20 MG ORAL TABLET Take 2 tablets by mouth daily for 5 days PREDNISONE 02502326878 Active Pilar Swain MD Active TYLENOL WITH CODEINE #3 300-30 MG ORAL TABLET Take one tablet by mouth every 6 hours as needed for pain ACETAMINOPHEN-CODEINE 70047914190 Active Pilar Swain MD Active ATORVASTATIN CALCIUM 40 MG ORAL TABLET 1 tab By Mouth daily ATORVASTATIN CALCIUM 96110043497 Active Amol Devine MD Active NAPROXEN 500 MG ORAL TABLET 1 by mouth twice a day as needed for pain and inflammation NAPROXEN 79725910854 Active Amol Devine MD Active ASPIRIN 81 MG ORAL TABLET 1 by mouth every day ASPIRIN 94018274577 Active Amol Devine MD Active LASIX 40 MG ORAL TABLET 1 by mouth Twice a Day FUROSEMIDE 91476598265 Active Rachel Machuca BORDER INSPECTOR Active METOPROLOL TARTRATE 50 MG ORAL TABLET 1 by mouth twice a day METOPROLOL TARTRATE 17850145420 Active Amol Devine MD Active PROTONIX 40 MG ORAL TABLET DELAYED RELEASE 1 by mouth daily As Needed PANTOPRAZOLE SODIUM 20655118052 Active Amol Devine MD Active EFFEXOR XR [...] tablets daily. ZOLOFT 100 MG ORAL TABLET 142751 SERTRALINE HCL Inactive SERTRALINE HCL 50 MG ORAL TABLET Take 1/2 tab by mouth daily for 1 week, then take 1 tablet daily. SERTRALINE HCL 50 MG ORAL TABLET 791636 SERTRALINE HCL Inactive DOXYCYCLINE HYCLATE 100 MG ORAL CAPSULE 1 by mouth twice a day DOXYCYCLINE HYCLATE 100 MG ORAL CAPSULE 4709805 DOXYCYCLINE HYCLATE Inactive HYDROXYZINE HCL 50 MG ORAL TABLET 1 by mouth three times a day as needed 2014 HYDROXYZINE HCL 50 MG ORAL TABLET 475798 HYDROXYZINE HCL Inactive SEROQUEL 200 MG ORAL TABLET one tablet at nighttime SEROQUEL 200 MG ORAL TABLET 957906 QUETIAPINE FUMARATE Inactive AMBIEN 10 MG ORAL TABLET 1 by mouth nightly at bedtime as needed for insomnia AMBIEN 10 MG ORAL TABLET 455690 ZOLPIDEM TARTRATE Inactive BUSPIRONE HCL 15 MG ORAL TABLET 1 by mouth twice a day BUSPIRONE HCL 15 MG ORAL TABLET 372009 BUSPIRONE HCL Inactive CELEXA 40 MG ORAL TABLET 1 by mouth every day CELEXA 40 MG ORAL TABLET 573707 CITALOPRAM HYDROBROMIDE Inactive LISINOPRIL 5 MG ORAL TABLET 1 by mouth every day LISINOPRIL 5 MG ORAL TABLET 433273 LISINOPRIL Inactive SIMVASTATIN 40 MG ORAL TABLET 1 by mouth every night SIMVASTATIN 40 MG ORAL TABLET 114847 SIMVASTATIN Inactive EFFEXOR XR 75 MG ORAL CAPSULE EXTENDED RELEASE 24 HOUR Take 1 capsule by mouth daily. VENLAFAXINE HCL 57072519245 No Longer Active Da Vazquez MD Active EFFEXOR XR 37.5 MG ORAL CAPSULE EXTENDED RELEASE 24 HOUR Take 1 capsule by mouth daily. VENLAFAXINE HCL 27172698551 No Longer Active Da Vazquez MD Active ZOLOFT 100 MG ORAL TABLET Take 1 tablet by mouth daily for 2 weeks, then take 1 1/2 tablets daily. SERTRALINE HCL 28772387924 No Longer Active Da Vazquez MD Active SERTRALINE HCL 50 MG ORAL TABLET Take 1/2 tab by mouth daily for 1 week, then take 1 tablet daily. SERTRALINE HCL 02400508821 No Longer Active Da Vazquez MD Active DOXYCYCLINE HYCLATE 100 MG ORAL CAPSULE 1 by mouth twice a day DOXYCYCLINE HYCLATE 14285281567 No Longer Active Pilar Swain MD Active HYDROXYZINE HCL 50 MG ORAL TABLET 1 by mouth three times a day as needed 2014 HYDROXYZINE HCL 95245631793 No Longer Active Da Vazquez MD Active SEROQUEL 200 MG ORAL TABLET one tablet at nighttime QUETIAPINE FUMARATE 86268832610 No Longer Active Pilar Swain MD Active AMBIEN 10 MG ORAL TABLET 1 by mouth nightly at bedtime as needed for insomnia ZOLPIDEM TARTRATE 69905969514 No Longer Active Da Vazquez MD Active BUSPIRONE HCL 15 MG ORAL TABLET 1 by mouth twice a day BUSPIRONE HCL 95006777634 No Longer Active Pilar Swain MD Active CELEXA 40 MG ORAL TABLET 1 by mouth every day CITALOPRAM HYDROBROMIDE 52779543485 No Longer Active Pilar Swain MD Active LISINOPRIL 5 MG ORAL TABLET 1 by mouth every day LISINOPRIL 14707260409 No Longer Active Da Vazquez MD Active SIMVASTATIN 40 MG ORAL TABLET 1 by mouth every night SIMVASTATIN 73997961418 No Longer Active Jing Stringer D.O. 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 FITTER SUPERVISOR Est Patient Exp Problem - 69458 Da Vazquez MD CPT-01968 [facility] 10:29:36 PIPE FITTER SUPERVISOR Est Patient Detailed - 47955 Da Vazquez MD CPT-20253 [facility] 09:22:20 PIPE FITTER SUPERVISOR Est Patient Exp Problem - 33566 Da Vazquez MD CPT-16358 [facility] 09:12:24 PIPE FITTER SUPERVISOR Est Patient Exp Problem - 58792 Da Vazquez MD CPT-62991 [facility] 06:13:43 PIPE FITTER SUPERVISOR Est Patient Exp Problem - 61321 Pilar Swain MD CPT-63768 [facility] 11:09:52 PIPE FITTER SUPERVISOR Est Patient Exp Problem - 63950 Pilar Swain MD CPT-49239 [facility] 14:08:30 PIPE FITTER SUPERVISOR Est Patient Exp Problem - 21287 Amol Devine MD CPT-91869 [facility] 22:14:07 CDT Ofc Vst, Est Level III Pilar Swain MD CPT-40038 [facility] 12:56:29 CDT Est Patient Exp Problem - 92754 Jing Stringer D.O. CPT-50500 [facility] 11:29:16 PIPE FITTER SUPERVISOR New Patient Detailed - 91162 Jing Stringer D.O. CPT- 16789 [facility] Procedures Code Procedure Name Date Entry Date Standard Description CPT-90377 Diagnostic evaluation with medical - 61723 11:27:21 PIPE FITTER SUPERVISOR CPT-75217 Diagnostic evaluation with medical - 63438 11:55:48 PIPE FITTER SUPERVISOR
--- OUTSIDE RECORDS SUMMARY | 2017-07-20 16:09 | XMS REPORT | Continuity of Care Document ---
Author Author [facility] Organization [facility] Address [address] [place] [address] Phone Unavailable Care Team Providers Care Sql Bi Developer Name Role Phone BHUMI SANCHEZ MD PCP Insurance Providers Guarantor Fabricio Villafuerte Address [address] [place] [address] Email PT DECLINED Payer Medicare A & B Policy Number [id number] Subscriber's Name Fabricio Villafuerte Relationship 18 Self / Same As Patient Group Number [id number] Group Name RETIRED Effective Date 16 Advance Directives Directive Response Recorded Date/Time Does the patient have an advance directive? Yes 03/10/17 10:00pm If yes, is advance directive on file with [facility]? No 03/10/17 10:00pm If not on file with [facility] will patient provide a copy? Yes 03/10/17 10:00pm Do you have a Directive to Physician? No 07/18/17 11:57am Do you have a Medical Power of Probation Counselor? No 07/18/17 11:57am Do you have an out of hospital Do Not Resuscitate Order? No 07/18/17 11:57am Do you have any special needs we should be aware of? No 07/18/17 11:57am Do you have a support person here with you today? No 07/18/17 11:57am Did patient receive Notice of Privacy Practices? Yes 07/18/17 11:57am Did patient receive patient rights and responsibilities? Yes 07/18/17 11:57am Problems Medical Problem Onset Date Status CHF [...] Applicable Smoking Status Start Date Stop Date Never Smoker Hospital Discharge Instructions No hospital discharge instruction information available. Plan of Care Discharge Date 07/18/17 3:15pm Disposition HOME, SELF-CARE Condition at Discharge Stable Instructions/Education Provided Syncope Concussion/Head Injury - Adult Contusion Hypokalemia Laceration Pneumonia - Bacterial Forms Provided Work/School Excuse Prescriptions See Medication Section Referrals BHUMI SANCHEZ MD Address: [facility] [place] [address] Additional Instructions/Education 1. follow up with your primary doctor tomorrow without fail 2. return to ed as needed and discussed 3. tylenol and motrin as needed for pain 4. increase oral fluids Functional Status No functional status information available. Allergies, Adverse Reactions, Alerts Allergen Type Severity Reaction Status Last Updated Shellfish Allergy Unknown Active 03/09/17 Iodine Allergy Unknown Active 07/18/17 Immunizations No immunization information available. Vital Signs [...] 03/13/2017 11:47am Height 5 ft 10 in 07/18/2017 12:00pm Weight 325 lb 07/18/2017 12:00pm Body Mass Index 46.6 kg/m^2 07/18/2017 12:00pm Results Laboratory Results Test Name Result Units Flags Reference Collection Date/Time Result Date/ Time Comments D-Dimer Quantitative (PE/DVT) 0.98 ug/mLFEU H 0.00-0.45 03/09/2017 4: 34pm 03/09/2017 6:49pm Bedside Glucose 109 mg/dL 70-120 03/13/2017 3:06pm 03/13/2017 4:06pm Meter ID: [id number] Arterial Blood pH 7.44 H 7.31-7.41 03/10/2017 7:33pm 03/10/2017 7: 43pm Arterial Blood Partial Pressure CO2 62 mmHg H 41-51 03/10/2017 7:33pm 7:43pm Arterial Blood Partial Pressure O2 66 mmHg L 80-105 03/10/2017 7:33pm 7:43pm Arterial Blood HCO3 42 mmol/L H 23-03/10/2017 7:33pm 03/10/2017 7: 43pm Arterial Blood Base Excess 17.0 mmol/L H -2 - 3 03/10/2017 7:33pm 2017 7:43pm Arterial Blood Oxygen Saturation 98.0 % 95-98 03/10/2017 7:33pm 2017 7:43pm White Blood Count 19.71 x10e3/uL H 4.8-10.8 07/18/2017 12:49pm 2017 1:17pm Red Blood Count 4.84 x10e6/uL 4.3-5.7 07/18/2017 12:49pm 07/18/2017 1: 17pm Hemoglobin 16.3 g/dL 14.0-18.0 07/18/2017 12:49pm 07/18/2017 1:17pm Hematocrit 45.9 % 38.2-49.6 07/18/2017 12:49pm 07/18/2017 1:17pm Mean Corpuscular Volume 94.8 fL 81-99 07/18/2017 12:49pm 07/18/2017 1: 17pm Mean Corpuscular Hemoglobin 33.7 pg H 28-32 07/18/2017 12:49pm 2017 1:17pm Mean Corpuscular Hemoglobin Concent 35.5 g/dL H 31-35 07/18/2017 12:49pm 07/18/2017 1:17pm Red Cell Distribution Width 13.5 % 11.7-14.4 07/18/2017 12:49pm 2017 1:17pm Platelet Count 253 x10e3/uL 140-360 07/18/2017 12:49pm 07/18/2017 1: 17pm Neutrophils (%) (Auto) 85.0 % H 38.7-80.0 07/18/2017 12:49pm 07/18/2017 1:17pm Lymphocytes (%) (Auto) 8.6 % L 18.0-39.1 07/18/2017 12:49pm 07/18/2017 1 :17pm Monocytes (%) (Auto) 5.6 % 4.4-11.3 07/18/2017 12:49pm 07/18/2017 1: 17pm Eosinophils (%) (Auto) 0.2 % 0.0-6.0 07/18/2017 12:49pm 07/18/2017 1: 17pm Basophils (%) (Auto) 0.2 % 0.0-1.0 07/18/2017 12:49pm 07/18/2017 1: 17pm IM GRANULOCYTES % 0.4 % 0.0-1.0 07/18/2017 12:49pm 07/18/2017 1:17pm Neutrophils # (Auto) 16.8 H 2.1-6.9 07/18/2017 12:49pm 07/18/2017 1: 17pm Lymphocytes # (Auto) 1.7 1.0-3.2 07/18/2017 12:49pm 07/18/2017 1: 17pm Monocytes # (Auto) 1.1 H 0.2-0.8 07/18/2017 12:49pm 07/18/2017 1:17pm Eosinophils # (Auto) 0.0 0.0-0.4 07/18/2017 12:49pm 07/18/2017 1: 17pm Basophils # (Auto) 0.0 0.0-0.1 07/18/2017 12:49pm 07/18/2017 1:17pm Absolute Immature Granulocyte (auto 0.08 x10e3/uL 0-0.1 07/18/2017 12: 49pm 07/18/2017 1:17pm Prothrombin Time 12.2 seconds 11.9-14.5 07/18/2017 12:49pm 07/18/2017 1 :33pm Prothromb Time International Ratio 0.98 07/18/2017 12:49pm 2017 1:33pm Oral Anticoagulant Therapy INR Values: 1. Low Intensity Therapy 1.5 - 2.0 2. Moderate Intensity Therapy 2.0 - 3.0 3. High Intensity Therapy(1) 2.5 - 3.5 4. High Intensity Therapy(2) 3.0 - 4.0 5. Panic Value INR > 5.0 Activated Partial Thromboplast Time 26.7 seconds 23.8-35.5 07/18/2017 12 :49pm 07/18/2017 1:33pm Urine Color YELLOW YELLOW 07/18/2017 12:49pm 07/18/2017 1:28pm Urine Clarity CLEAR CLEAR 07/18/2017 12:49pm 07/18/2017 1:28pm Urine Specific [place] 1.010 1.010-1.025 07/18/2017 12:49pm 2017 1:28pm Urine pH 6 5 - 7 07/18/2017 12:49pm 07/18/2017 1:28pm Urine Leukocyte Esterase NEGATIVE NEGATIVE 07/18/2017 12:49pm 2017 1:28pm Urine Nitrite NEGATIVE NEGATIVE 07/18/2017 12:49pm 07/18/2017 1:28pm Urine Protein 1+ H NEGATIVE 07/18/2017 12:49pm 07/18/2017 1:28pm Urine Glucose (UA) NEGATIVE NEGATIVE 07/18/2017 12:49pm 07/18/2017 1: 28pm Urine Ketones NEGATIVE NEGATIVE 07/18/2017 12:49pm 07/18/2017 1:28pm Urine Opiates Screen POSITIVE H NEGATIVE 07/18/2017 12:49pm 2017 1:24pm This test provides only a screen. Positive results should be repeated by a confirmatory test. Urine Barbiturates Screen NEGATIVE NEGATIVE 07/18/2017 12:49pm 2017 1:24pm Urine Phencyclidine Screen NEGATIVE NEGATIVE 07/18/2017 12:49pm 07/18 1:24pm Urine Amphetamines Screen NEGATIVE NEGATIVE 07/18/2017 12:49pm 2017 1:24pm Urine Methamphetamines Screen NEGATIVE NEGATIVE 07/18/2017 12:49pm 1:24pm Urine Benzodiazepines Screen NEGATIVE NEGATIVE 07/18/2017 12:49pm 08/2017 1:24pm Urine Cocaine Screen NEGATIVE NEGATIVE 07/18/2017 12:49pm 07/18/2017 1:24pm Urine Cannabinoids Screen POSITIVE H NEGATIVE 07/18/2017 12:49pm 07/18 1:24pm This test provides only a screen. Positive results should be repeated by a confirmatory test. Urine Methadone Screen NEGATIVE NEGATIVE 07/18/2017 12:49pm 2017 1:24pm THESE RESULTS ARE FOR MEDICAL TREATMENT ONLY *THIS REPORT CONTAINS UNCONFIRMED SCREENING RESULTS* POSITIVE RESULTS WILL BE CONFIRMED BY REFERENCE LAB UPON REQUEST CUT-OFF DRUG CLASS CONCENTRATION ng/mL Amphetamines 1000 Methamphetamines 1000 Cocaine Metabolite 300 Opiate 300 Phencyclidine 25 Cannabinoid 50 Barbiturates 300 Benzodiazepine 300 Methadone 300 Urine Urobilinogen 0.2 mg/dL 0.2 - 1 07/18/2017 12:49pm 07/18/2017 1: 28pm Urine Bilirubin NEGATIVE NEGATIVE 07/18/2017 12:49pm 07/18/2017 1: 28pm Urine Blood NEGATIVE NEGATIVE 07/18/2017 12:49pm 07/18/2017 1:28pm Urine WBC NONE /HPF 0-5 07/18/2017 12:49pm 07/18/2017 1:44pm Urine RBC NONE /HPF 0-5 07/18/2017 12:49pm 07/18/2017 1:44pm Urine Bacteria NONE /HPF NONE 07/18/2017 12:49pm 07/18/2017 1:44pm Urine Epithelial Cells FEW /LPF NONE 07/18/2017 12:49pm 07/18/2017 1: 44pm Urine Hyaline Casts 6-10 H 0-1 07/18/2017 12:49pm 07/18/2017 1:44pm Urine Mucus RARE RARE 07/18/2017 12:49pm 07/18/2017 1:44pm Sodium Level 140 mmol/L 136-145 07/18/2017 12:49pm 07/18/2017 1:35pm Potassium Level 2.8 mmol/L *L 3.5-5.1 07/18/2017 12:49pm 07/18/2017 1: 35pm Results called to WILY GOLDEN RN at 1334 on 07/18/17 by Bennett Peña. RB OK. This test has been rerun and double checked for accuracy. Chloride Level 95 mmol/L L 98-107 07/18/2017 12:49pm 07/18/2017 1:35pm Carbon Dioxide Level 34 mmol/L H 22-29 07/18/2017 12:49pm 07/18/2017 1: 35pm Anion Gap 13.8 mmol/L 8-16 07/18/2017 12:49pm 07/18/2017 1:35pm Blood Urea Nitrogen 13 mg/dL 7-26 07/18/2017 12:49pm 07/18/2017 1:35pm Creatinine 0.72 mg/dL 0.72-1.25 07/18/2017 12:49pm 07/18/2017 1:35pm BUN/Creatinine Ratio 18 6-25 07/18/2017 12:49pm 07/18/2017 1:35pm Estimat Glomerular Filtration Rate > 60 ML/MIN 60- 07/18/2017 12:49pm 07/18/2017 1:35pm Ranges were taken from the National Kidney Disease Education Program and the National Kidney Foundation literature. Reference ranges: 60 or greater: Normal 16-59 (for 3 consecutive months): Chronic kidney disease 15 or less: Kidney failure Glucose Level 94 mg/dL 74-118 07/18/2017 12:49pm 07/18/2017 1:35pm Calcium Level 9.8 mg/dL 8.4-10.2 07/18/2017 12:49pm 07/18/2017 1:35pm Lactic Acid Level 20.9 MG/DL H 4.5-19.8 07/18/2017 12:49pm 07/18/2017 1: 31pm Magnesium Level 1.6 MG/DL 1.3-2.1 07/18/2017 12:49pm 07/18/2017 1:35pm Total Bilirubin 0.7 mg/dL 0.2-1.2 07/18/2017 12:49pm 07/18/2017 1:35pm Aspartate Amino Transf (AST/SGOT) 21 IU/L 5-34 07/18/2017 12:49pm 07/18 1:35pm Alanine Aminotransferase (ALT/SGPT) 26 IU/L 0-55 07/18/2017 12:49pm 08/2017 1:35pm Total Protein 6.9 g/dL 6.5-8.1 07/18/2017 12:49pm 07/18/2017 1:35pm Albumin 3.7 g/dL 3.5-5.0 07/18/2017 12:49pm 07/18/2017 1:35pm Globulin 3.2 g/dL 2.3-3.5 07/18/2017 12:49pm 07/18/2017 1:35pm Albumin/Globulin Ratio 1.2 0.8-2.0 07/18/2017 12:49pm 07/18/2017 1: 35pm Alkaline Phosphatase 93 IU/L 40-150 07/18/2017 12:49pm 07/18/2017 1: 35pm B-Type Natriuretic Peptide 24.0 pg/mL 0-100 07/18/2017 12:49pm 2017 1:44pm Creatine Kinase 82 IU/L 30-200 07/18/2017 12:49pm 07/18/2017 1:35pm Creatine Kinase MB 1.50 ng/mL 0-5.0 07/18/2017 12:49pm 07/18/2017 1: 44pm Troponin I < 0.001 ng/mL 0-0.300 07/18/2017 12:49pm 07/18/2017 1:44pm Procedures Procedure Status Date Provider(s) ASSISTANCE WITH RESPIRATORY VENTILATION, <24 HRS, CPAP Completed 03/10/17 KEKE DE LA CRUZ MD Computed tomography of brain without radiopaque contrast Active 03/09/17 REBEKAH CONRAD [employer] SALES [employer]ENT Computed tomography of chest with contrast Active 03/09/17 MELISSA VALDIVIA MD Computed tomography of brain without radiopaque contrast Active 07/18/17 RONALDO MARTINEZ [employer] SALES [employer]ENT Computed tomography of cervical spine without contrast Active 07/18/17 RONALDO MARTINEZ [employer] SALES AGENT Encounters Encounter Location Arrival/Admit Date Discharge/Depart Date Attending Provider Departed Emergency Room [facility] 07/18/17 11:51am 07/18 3:15pm FABIANA ABBOTT MD Registered Clinic [facility] 04/08/17 9:33am KEKE DE LA CRUZ MD Discharged Inpatient [facility] 03/10/17 12:06am 3:35pm BHUMI SANCHEZ MD
--- OUTSIDE RECORDS SUMMARY | 2017-07-20 16:09 | XMS REPORT | Clinical Summary ---
Author Author [facility] Organization [facility] Address Unknown Phone Unavailable Care Team Providers Care It Program Auditor Name Role Phone Asked, Pcp PCP Unavailable [...] Dx); Back contusion, left, initial encounter after 07/19/2016 Social History Tobacco Use Types Packs/Day Years [...] 1:17 PM) Specimen Performing Laboratory [facility] [address] [place] [address] Narrative Study: CT LUMBAR SPINE WO CONTRAST. [...] the abdominal aorta. IMPRESSION: No acute abnormality. [id number] Procedure Note Interface, Radiology Results Incoming - [...] the abdominal aorta. IMPRESSION: No acute abnormality. [id number] * XR Hip 2-3 View Left (08/14/2016 12:54 PM) Specimen Performing Laboratory [facility] [address] [place] [address] Narrative EXAMINATION:XR HIP 2-3 VIEWS LEFT CLINICAL HISTORY:fall hip pain COMPARISON:None. IMPRESSION: No fracture or dislocation identified. Hip joint space is preserved. Bone mineralization is normal. [facility]-[id number] Procedure Note Hm Interface, Radiology Results Incoming - 08/14/2016 1:03 PM CDT EXAMINATION: XR HIP 2-3 VIEWS LEFT CLINICAL HISTORY: fall hip pain COMPARISON: None. IMPRESSION: No fracture or dislocation identified. Hip joint space is preserved. Bone mineralization is normal. [facility]-[id number] after 07/19/2016 Insurance Payer Benefit Subscriber ID Type Phone Address Plan / Group MEDICARE MEDICARE xxxxxxxxxx Medicare [place], [place] [address] Home:
--- OUTSIDE RECORDS SUMMARY | 2017-07-20 16:09 | XMS REPORT | Clinical Summary ---
Author Author [facility] Address Unknown Phone Unavailable Care Team Providers Care Health Care Liaison Name Role Phone PCP Unavailable Allergies Not on File Current Medications Not on file Active Problems Not on file Social History Tobacco Use Types Packs/Day Years Used Date Never Assessed Sex Assigned at Date Recorded Not on file Last Filed Vital Signs Not on file Plan of Treatment Not on file Results Not on fileafter 07/19/2016
[2017-07-20 16:40] LABS: BASOPHILS # (AUTO) 0.1 (0.0-0.1); BASOPHILS % 0.3 % (0.0-1.0); EOSINOPHILS # (AUTO) 0.1 (0.0-0.4); EOSINOPHILS % 0.5 % (0.0-6.0); HEMATOCRIT 45.1 % (38.2-49.6); HEMOGLOBIN 15.3 g/dL (14.0-18.0); LYMPHOCYTES # (AUTO) 1.8 (1.0-3.2); LYMPHOCYTES % 12.1 % (18.0-39.1); MEAN CORPUSCULAR HEMOGLOBIN 32.8 pg (28-32); MEAN CORPUSCULAR HGB CONC 33.9 g/dL (31-35); MEAN CORPUSCULAR VOLUME 96.8 fL (81-99); MONOCYTES # (AUTO) 1.2 (0.2-0.8); MONOCYTES % 8.1 % (4.4-11.3); NEUTROPHILS # (AUTO) 11.4 (2.1-6.9); NEUTROPHILS % 78.6 % (38.7-80.0); PLATELET COUNT 234 x10e3/uL (140-360); RED BLOOD COUNT 4.66 x10e6/uL (4.3-5.7); RED CELL DISTRIBUTION WIDTH 13.5 % (11.7-14.4)
--- NOTE | 2017-07-20 16:46 | Diagnostic Imaging Report ---
EXAMINATION: CHEST SINGLE (PORTABLE) 07/20/2017 4:19 PM COMPARISON: 07/18/2017 and prior INDICATION: History of COPD DISCUSSION: Limited examination due to technique. LINES: None. LUNGS: Pulmonary vascular congestion. PLEURA: No pleural effusion or pneumothorax. HEART AND MEDIASTINUM: Mild cardiomegaly, unchanged BONES AND SOFT TISSUES: No acute osseous lesion. The soft tissues are normal. IMPRESSION: Limited examination. Mild cardiomegaly with pulmonary vascular congestion. Tucker Lea MD Signed by: Dr. Tucker Lea M.D. on 07/20/2017 4:43 PM
[2017-07-20 17:00] LABS: ALANINE AMINOTRANSFERASE 21 IU/L (0-55); ALBUMIN 3.5 g/dL (3.5-5.0); ALKALINE PHOSPHATASE 86 IU/L (40-150); ANION GAP 14.7 mmol/L (8-16); BLOOD UREA NITROGEN 15 mg/dL (7-26); BUN/CREATININE RATIO 16 (6-25); CALCIUM 8.9 mg/dL (8.4-10.2); CARBON DIOXIDE 33 mmol/L (22-29); CHLORIDE 97 mmol/L (98-107); CREATINE KINASE 62 IU/L (30-200); CREATININE, SERUM 0.91 mg/dL (0.72-1.25); EST GLOMERULAR FILTRATION RATE > 60 ML/MIN (60-); GLUCOSE 115 mg/dL (74-118); MAGNESIUM 1.5 MG/DL (1.3-2.1); SODIUM 142 mmol/L (136-145)
[2017-07-20 17:07] LABS: B-TYPE NATRIURETIC PEPTIDE2 23.4 pg/mL (0-100)
[2017-07-20 17:15] LABS: POTASSIUM 2.7 mmol/L (3.5-5.1)
[2017-07-20] MEDS ORDERED: POTASSIUM CHLORIDE 20MEQ/100ML 100 ML IV ONE (17:30)
[2017-07-20] MEDS ORDERED: SODIUM CHLORIDE 0.9% 250ML 250 ML ONE (17:46)
[2017-07-20] MEDS ORDERED: POTASSIUM CHLORIDE 20 MEQ TAB CR PO ONE (18:00)
[2017-07-20] MEDS ORDERED: FUROSEMIDE INJ 10 MG/ML 4 ML VIAL IV ONE (19:15)
[2017-07-20] MEDS ORDERED: SODIUM CHLORIDE 0.9% 100 ML ONE (19:22)
== END 2017-07-20 20:05 | disposition home or self-care (01) ==
LOC: ER 16:05
DX: R53.1 Weakness (principal); R42 Dizziness and giddiness; K52.9 Noninfective gastroenteritis and colitis, unspecified; I50.22 Chronic systolic (congestive) heart failure; I25.10 Atherosclerotic heart disease of native coronary artery without angina pectoris; J44.9 Chronic obstructive pulmonary disease, unspecified; G47.30 Sleep apnea, unspecified
CPT/HCPCS: 36415; 71045; 80053; 82550; 82553; 83605; 83735; 83880; 84484; 85025; 93005; 99284; J1940; J3480; J7050 ×2

== ENCOUNTER 2017-10-08 12:22 | Emergency (ER) | payer MEDICARE ==
[~2017-10-08] VITALS: Ht 177.8 cm; Wt 147.4 kg
[2017-10-08] MEDS ORDERED: KETOROLAC TROMETHAMINE 30 MG/ML VIAL IV STA (12:28)
[2017-10-08] MEDS ORDERED: ONDANSETRON HCL INJ 2 MG/ML VIAL IV STA (12:28)
[2017-10-08] MEDS ORDERED: SODIUM CHLORIDE 0.9% 1000ML 1,000 ML IV STA (12:28)
[2017-10-08] MEDS ORDERED: HYDROCODONE/APAP 10MG-325MG TAB PO ONE (12:30)
[2017-10-08 12:51] LABS: BASOPHILS # (AUTO) 0.1 (0.0-0.1); BASOPHILS % 0.3 % (0.0-1.0); EOSINOPHILS # (AUTO) 0.1 (0.0-0.4); EOSINOPHILS % 0.6 % (0.0-6.0); HEMATOCRIT 48.3 % (38.2-49.6); LYMPHOCYTES # (AUTO) 1.6 (1.0-3.2); MEAN CORPUSCULAR HEMOGLOBIN 31.9 pg (28-32); MEAN CORPUSCULAR HGB CONC 33.1 g/dL (31-35); MEAN CORPUSCULAR VOLUME 96.4 fL (81-99); MONOCYTES # (AUTO) 1.3 (0.2-0.8); MONOCYTES % 8.1 % (4.4-11.3); NEUTROPHILS # (AUTO) 13.2 (2.1-6.9); NEUTROPHILS % 80.5 % (38.7-80.0); PLATELET COUNT 288 x10e3/uL (140-360); RED BLOOD COUNT 5.01 x10e6/uL (4.3-5.7); RED CELL DISTRIBUTION WIDTH 12.9 % (11.7-14.4)
[2017-10-08 13:09] LABS: ALANINE AMINOTRANSFERASE 18 IU/L (0-55); ALBUMIN 3.6 g/dL (3.5-5.0); ALBUMIN/GLOBULIN RATIO 1.1 (0.8-2.0); ALKALINE PHOSPHATASE 86 IU/L (40-150); ANION GAP 15.2 mmol/L (8-16); BLOOD UREA NITROGEN 18 mg/dL (7-26); BUN/CREATININE RATIO 17 (6-25); CARBON DIOXIDE 28 mmol/L (22-29); CHLORIDE 102 mmol/L (98-107); CREATINE KINASE 28 IU/L (30-200); CREATININE, SERUM 1.03 mg/dL (0.72-1.25); EST GLOMERULAR FILTRATION RATE > 60 ML/MIN (60-); GLUCOSE 115 mg/dL (74-118); POTASSIUM 4.2 mmol/L (3.5-5.1); SODIUM 141 mmol/L (136-145)
--- NOTE | 2017-10-08 13:14 | Diagnostic Imaging Report ---
EXAMINATION: Head and cervical spine CT without contrast HISTORY: Dizziness, status post fall, memory loss, neck pain, evaluate for fracture TECHNIQUE: Multidetector axial images were obtained without contrast from the foramen magnum to the vertex and through the cervical spine. The images were reconstructed using brain and bone algorithms. Thin section brain images were reformatted into coronal and sagittal planes. Dose modulation, iterative reconstruction, and/or weight based adjustment of the mA/kV was utilized to reduce the radiation dose to as low as reasonably achievable. HEAD CT FINDINGS: Skull: No lytic or blastic lesions. No fractures. Parenchyma: Normal. No mass, hemorrhage or CT evidence of acute vascular insult. Brain volume: Normal for age. Ventricles: No hydrocephalus or displacement. Arteries: No density suggestive of thrombus. Dural sinuses: No abnormal density. Extra-axial spaces: No abnormal density. Foramen magnum: No mass, Chiari malformation, or basilar invagination. Sella: No obvious mass. Paranasal/mastoid sinuses: Imaged portions unremarkable. CERVICAL SPINE CT FINDINGS: Alignment:Normal alignment and lordosis. Soft tissues: Normal. Vertebrae: Normal height and density. No acute fracture, infection or neoplasm. Degenerative changes: No significant degenerative changes, no spinal canal or foraminal stenoses. IMPRESSION: Head CT: Normal head CT, particularly no acute posttraumatic intracranial hemorrhage. Cervical spine CT: No acute cervical spine fractures or dislocations. No canal or foraminal stenosis. Note: Acute post traumatic spinal cord, vascular or ligamentous injury cannot adequately be assessed with CT. Signed by: Dr. Samantha Loza M.D. on 10/08/2017 1:11 PM
[2017-10-08 14:33] VITALS: BP 105/69
== END 2017-10-08 13:45 | disposition home or self-care (01) ==
LOC: ER 12:22
DX: R42 Dizziness and giddiness (principal); M54.2 Cervicalgia; S16.1XXA Strain of muscle, fascia and tendon at neck level, initial encounter; W11.XXXA Fall on and from ladder, initial encounter; Y92.008 Other place in unspecified non-institutional (private) residence as the place of occurrence of the external cause; I10 Essential (primary) hypertension; J44.9 Chronic obstructive pulmonary disease, unspecified; I50.9 Heart failure, unspecified; M54.9 Dorsalgia, unspecified; G89.29 Other chronic pain; E66.9 Obesity, unspecified; Z86.73 Personal history of transient ischemic attack (TIA), and cerebral infarction without residual deficits
CPT/HCPCS: 36415; 70450; 72125; 80053; 82550; 82553; 84484; 85025; 93005; 99284; J1885; J2405; J7030

== ENCOUNTER 2019-01-12 11:13 | Inpatient (IN) | payer MEDICARE ==
[~2019-01-12] VITALS: Ht 177.8 cm; Wt 147.4 kg
--- OUTSIDE RECORDS SUMMARY | 2019-01-12 11:17 | XMS REPORT ---
Author Author Admin, [facility] Address Unknown Phone Unavailable Allergies, Adverse Reactions, [...] DISORDER, MAJOR, RECURRENT EPISODE, W/ PSYCHOTIC FEATURES Inactive Da Vazquez MD DEPRESSIVE DISORDER, MAJOR, RECURRENT EPISODE, W/ PSYCHOTIC FEATURES Resolved Da Vazquez MD Medication List Medication Instructions Start Date Stop Date Generic Name NDC Status Provider Patient Instruction EFFEXOR XR 75 MG ORAL CAPSULE EXTENDED RELEASE 24 HOUR Take 3 capsules by mouth daily. VENLAFAXINE HCL 32652343345 Active Da Vazquez MD Active SEROQUEL 100 MG ORAL TABLET Take 1/2- 1 tablet by mouth at bedtime. QUETIAPINE FUMARATE 68901809554 Active Da Vazquez MD Active EFFEXOR XR 150 MG ORAL CAPSULE EXTENDED RELEASE 24 HOUR Take 1 capsule by mouth daily. VENLAFAXINE HCL 53526754188 Active Da Vazquez MD Active LISINOPRIL 20 MG ORAL TABLET Take 1 tablet by mouth daily. LISINOPRIL 91231387802 Active Da Vazquez MD Active METOPROLOL TARTRATE 50 MG ORAL TABLET Take one tablet by mouth twice a day. METOPROLOL TARTRATE 85980613060 Active Da Vazquez MD Active AMBIEN 5 MG ORAL TABLET Take 1 tablet by mouth at bedtime as needed for sleep. ZOLPIDEM TARTRATE 94379916475 Active Da Vazquez MD Active ALBUTEROL SULFATE (2.5 MG/3ML) 0.083% INHALATION NEBULIZATION SOLUTION 1 via Hand held neb every 4 - 6 hours as needed ALBUTEROL SULFATE 43856172175 Active Pilar Swain MD Active PREDNISONE 20 MG ORAL TABLET Take 2 tablets by mouth daily for 5 days PREDNISONE 17658279550 Active Pilar Swain MD Active TYLENOL WITH CODEINE #3 300-30 MG ORAL TABLET Take one tablet by mouth every 6 hours as needed for pain ACETAMINOPHEN-CODEINE 42706560111 Active Pilar Swain MD Active ATORVASTATIN CALCIUM 40 MG ORAL TABLET 1 tab By Mouth daily ATORVASTATIN CALCIUM 29998913750 Active Amol Devine MD Active NAPROXEN 500 MG ORAL TABLET 1 by mouth twice a day as needed for pain and inflammation NAPROXEN 60106130735 Active Amol Devine MD Active ASPIRIN 81 MG ORAL TABLET 1 by mouth every day ASPIRIN 35077243762 Active Amol Devine MD Active LASIX 40 MG ORAL TABLET 1 by mouth Twice a Day FUROSEMIDE 07915144497 Active Rachel Machuca OPERATING ROOM AIDE Active METOPROLOL TARTRATE 50 MG ORAL TABLET 1 by mouth twice a day METOPROLOL TARTRATE 10960411011 Active Amol Devine MD Active PROTONIX 40 MG ORAL TABLET DELAYED RELEASE 1 by mouth daily As Needed PANTOPRAZOLE SODIUM 17078173011 Active Amol Devine MD Active SEROQUEL 25 MG ORAL TABLET Take 1 tablet by mouth daily. SEROQUEL 25 MG ORAL TABLET 437801 QUETIAPINE FUMARATE Inactive EFFEXOR XR 75 MG ORAL CAPSULE [...] tablets daily. ZOLOFT 100 MG ORAL TABLET 678931 SERTRALINE HCL Inactive SERTRALINE HCL 50 MG ORAL TABLET Take 1/2 tab by mouth daily for 1 week, then take 1 tablet daily. SERTRALINE HCL 50 MG ORAL TABLET 071930 SERTRALINE HCL Inactive DOXYCYCLINE HYCLATE 100 MG ORAL CAPSULE 1 by mouth twice a day DOXYCYCLINE HYCLATE 100 MG ORAL CAPSULE 1201995 DOXYCYCLINE HYCLATE Inactive HYDROXYZINE HCL 50 MG ORAL TABLET 1 by mouth three times a day as needed HYDROXYZINE HCL 50 MG ORAL TABLET 872887 HYDROXYZINE HCL Inactive SEROQUEL 200 MG ORAL TABLET one tablet at nighttime SEROQUEL 200 MG ORAL TABLET 866366 QUETIAPINE FUMARATE Inactive AMBIEN 10 MG ORAL TABLET 1 by mouth nightly at bedtime as needed for insomnia AMBIEN 10 MG ORAL TABLET 491019 ZOLPIDEM TARTRATE Inactive BUSPIRONE HCL 15 MG ORAL TABLET 1 by mouth twice a day BUSPIRONE HCL 15 MG ORAL TABLET 835819 BUSPIRONE HCL Inactive CELEXA 40 MG ORAL TABLET 1 by mouth every day CELEXA 40 MG ORAL TABLET 777154 CITALOPRAM HYDROBROMIDE Inactive LISINOPRIL 5 MG ORAL TABLET 1 by mouth every day LISINOPRIL 5 MG ORAL TABLET 259144 LISINOPRIL Inactive SIMVASTATIN 40 MG ORAL TABLET 1 by mouth every night SIMVASTATIN 40 MG ORAL TABLET 201507 SIMVASTATIN Inactive SEROQUEL 25 MG ORAL TABLET Take 1 tablet by mouth daily. QUETIAPINE FUMARATE 67130869912 No Longer Active Da Vazquez MD Active EFFEXOR XR 75 MG ORAL CAPSULE EXTENDED RELEASE 24 HOUR Take 1 capsule by mouth daily. VENLAFAXINE HCL 40621188547 No Longer Active Da Vazquez MD Active EFFEXOR XR 37.5 MG ORAL CAPSULE EXTENDED RELEASE 24 HOUR Take 1 capsule by mouth daily. VENLAFAXINE HCL 44173798190 No Longer Active Da Vazquez MD Active ZOLOFT 100 MG ORAL TABLET Take 1 tablet by mouth daily for 2 weeks, then take 1 1/2 tablets daily. SERTRALINE HCL 47701016276 No Longer Active Da Vazquez MD Active SERTRALINE HCL 50 MG ORAL TABLET Take 1/2 tab by mouth daily for 1 week, then take 1 tablet daily. SERTRALINE HCL 72221920909 No Longer Active Da Vazquez MD Active DOXYCYCLINE HYCLATE 100 MG ORAL CAPSULE 1 by mouth twice a day DOXYCYCLINE HYCLATE 35647231777 No Longer Active Pilar Swain MD Active HYDROXYZINE HCL 50 MG ORAL TABLET 1 by mouth three times a day as needed HYDROXYZINE HCL 68041148371 No Longer Active Da Vazquez MD Active SEROQUEL 200 MG ORAL TABLET one tablet at nighttime QUETIAPINE FUMARATE 93184735879 No Longer Active Pilar Swain MD Active AMBIEN 10 MG ORAL TABLET 1 by mouth nightly at bedtime as needed for insomnia ZOLPIDEM TARTRATE 07976954536 No Longer Active Da Vazquez MD Active BUSPIRONE HCL 15 MG ORAL TABLET 1 by mouth twice a day BUSPIRONE HCL 17835071714 No Longer Active Pilar Swain MD Active CELEXA 40 MG ORAL TABLET 1 by mouth every day CITALOPRAM HYDROBROMIDE 82635495515 No Longer Active Pilar Swain MD Active LISINOPRIL 5 MG ORAL TABLET 1 by mouth every day LISINOPRIL 39474034253 No Longer Active Da Vazquez MD Active SIMVASTATIN 40 MG ORAL TABLET 1 by mouth every night SIMVASTATIN 48207852284 No Longer Active Jing Stringer D.O. Active Vital Signs Date Name Value Unit Range Description blood pressure, diastolic 81 mm[Hg] BP milton blood pressure, systolic 126 mm[Hg] BP sys height E&M 70 [in_us] Bdy height pulse rate E&M 61 /min Heart rate weight E&M 306 [lb_av] Weight Measured blood pressure, diastolic 71 mm[Hg] BP milton blood pressure, systolic 122 mm[Hg] BP sys height E&M 70 [in_us] Bdy height pulse rate E&M 120 /min Heart rate weight E&M 305 [lb_av] Weight Measured blood pressure, diastolic 82 mm[Hg] BP milton [...] lymphocyte count, blood, automated 1.4 X10E3/UL 10*3/mm3 0.7-3.1 Lab Report: Comp. Metabolic Panel (14) - [...] Estimated Glomerular Filtration Rate (calc) 130 mL/min/1.73m2 >59 Lab Report: CBC With Differential/Platelet, Lipid Panel, Hemoglobin A1c, ... - Hematology platelet count 272 X10E3/UL 10*3/mm3 150-379 Lab Report: Comp. Metabolic Panel (14) - Chemistry carbon dioxide, venous blood 33 mmol/L 18-29 Lab Report: CBC With Differential/Platelet, Lipid Panel, [...] corpuscular hemoglobin concentration, RBC 33.6 G/DL % 31.5-35.7 hemoglobin, blood 17.2 g/dL 12.6-17.7 neutrophils as percent of blood leukocytes 79 % leukocyte count, blood 12.2 X10E3/UL 10*3/mm3 3.4-10.8 hematocrit, blood 51.2 % 37.5-51.0 Lab Report: Comp. Metabolic Panel (14) - Chemistry potassium, serum 4.3 mmol/L 3.5-5.2 blood glucose, random 82 mg/dL 65-99 globulin, serum 2.1 1.5-4.5 aspartate aminotransferase (SGOT), [...] 5-40 Encounters Date Encounter Provider Code Facility 08:48:03 CDT Est Patient Exp Problem - 72320 Da Vazquez MD CPT-99206 [facility] 10:06:28 CDT Est Patient Exp Problem - 77807 Da Vazquez MD CPT-98107 [facility] 14:28:37 CDT Est Patient Exp Problem - 18576 Da Vazquez MD CPT-51319 [facility] 08:46:37 CDT Est Patient Exp Problem - 64306 Da Vazquez MD CPT-72432 [facility] 09:07:13 CDT Est Patient Exp Problem - 70512 Da Vazquez MD CPT-56524 [facility] 09:22:34 MACHINE OVERHAULER Est Patient Exp Problem - 71454 Da Vazquez MD CPT-89234 [facility] 10:29:36 MACHINE OVERHAULER Est Patient Detailed - 07945 Da Vazquez MD CPT-79788 [facility] 09:22:20 MACHINE OVERHAULER Est Patient Exp Problem - 02370 Da Vazquez MD CPT-64615 [facility] 09:12:24 MACHINE OVERHAULER Est Patient Exp Problem - 42528 Da Vazquez MD CPT-56855 [facility] 06:13:43 MACHINE OVERHAULER Est Patient Exp Problem - 07150 Pilar Swain MD CPT-67799 [facility] 11:09:52 MACHINE OVERHAULER Est Patient Exp Problem - 46883 Pilar Swain MD CPT-77967 [facility] 14:08:30 MACHINE OVERHAULER Est Patient Exp Problem - 24862 Amol Devine MD CPT-06511 [facility] 22:14:07 CDT Ofc Vst, Est Level III Pilar Swain MD CPT-34710 [facility] 12:56:29 CDT Est Patient Exp Problem - 62092 Jing Stringer D.O. CPT-65965 [facility] 11:29:16 MACHINE OVERHAULER New Patient Detailed - 64746 Jing Stringer D.O. CPT-22308 [facility] Procedures Code Procedure Name Date Entry Date Standard Description CPT-80729 Diagnostic evaluation with medical - 62387 11:27:21 MACHINE OVERHAULER CPT-60569 Diagnostic evaluation with medical - 96459 11:55:48 MACHINE OVERHAULER
--- NOTE | 2019-01-12 11:30 | NUR ---
NO BIG BOY GOWNS AVAILABLE.
[2019-01-12] MEDS ORDERED: ASPIRIN 81 MG CHEW TAB PO STA (11:36)
[2019-01-12] MEDS ORDERED: IPRATROPIUM BROMIDE 0.02% 2.5 ML NEB NEB STA (11:36)
[2019-01-12] MEDS ORDERED: VANCOMYCIN 1GM/NS 250 ML 250 ML IV STA (11:36)
[2019-01-12] MEDS ORDERED: SODIUM CHLORIDE 0.9% 1000ML 1,000 ML IV STA ×2 (11:36)
[2019-01-12] MEDS ORDERED: ONDANSETRON HCL INJ 2MG/ML 2ML 2 MG/ML VIAL IV STA (11:36)
[2019-01-12] MEDS ORDERED: MORPHINE SULFATE INJ 4 MG/ML INJ 1ML IV STA (11:36)
[2019-01-12] MEDS ORDERED: FAMOTIDINE 20 MG/2 ML VIAL IV STA (11:36)
[2019-01-12] MEDS ORDERED: ALBUTEROL SULF 0.083% NEB SOLN 3 ML NEB NEB STA (11:36)
--- NOTE | 2019-01-12 11:39 | NUR ---
pt notified of need for urine. cup given. pt states unable to void now, but will try later. notified. pt refused straight cath.
[2019-01-12] MEDS: PIPER-TAZ 3.375 GM 50 ML IV SCH ×3 (11:50→23:17)
--- NOTE | 2019-01-12 11:51 | NUR ---
notified rt of nebs
[2019-01-12] MEDS ORDERED: ENOXAPARIN SODIUM INJ 100 MG/ML SYR SC STA (11:54)
[2019-01-12] MEDS ORDERED: ENOXAPARIN SODIUM INJ 100 MG/ML SYR SC ONE (11:59)
[2019-01-12] MEDS ORDERED: ENOXAPARIN SODIUM INJ 100 MG/ML SYR SC SCH (12:00)
[2019-01-12] MEDS ORDERED: ONDANSETRON HCL INJ 2MG/ML 2ML 2 MG/ML VIAL IV PRN (12:00)
[2019-01-12] MEDS ORDERED: VANCOMYCIN 1GM/NS 250 ML 250 ML ONE (12:00)
[2019-01-12] MEDS ORDERED: MORPHINE SULFATE 2 MG/ML SYR 1ML IV PRN (12:00)
[2019-01-12] MEDS ORDERED: PIPER-TAZ 3.375 GM 50 ML IV ONE (12:00)
[2019-01-12] MEDS ORDERED: FAMOTIDINE 20 MG/2 ML VIAL IV SCH (12:00)
[2019-01-12 12:07] LABS: BASOPHILS % 0.3 % (0.0-1.0); EOSINOPHILS # (AUTO) 0.1 (0.0-0.4); HEMATOCRIT 55.9 % (38.2-49.6); HEMOGLOBIN 17.6 g/dL (14.0-18.0); LYMPHOCYTES # (AUTO) 1.2 (1.0-3.2); LYMPHOCYTES % 14.9 % (18.0-39.1); MEAN CORPUSCULAR HEMOGLOBIN 29.8 pg (28-32); MEAN CORPUSCULAR HGB CONC 31.5 g/dL (31-35); MEAN CORPUSCULAR VOLUME 94.6 fL (81-99); MONOCYTES # (AUTO) 0.5 (0.2-0.8); MONOCYTES % 6.4 % (4.4-11.3); PLATELET COUNT 219 x10e3/uL (140-360); RED BLOOD COUNT 5.91 x10e6/uL (4.3-5.7); RED CELL DISTRIBUTION WIDTH 18.1 % (11.7-14.4)
[2019-01-12] MEDS: ALBUTEROL SULF 0.083% NEB SOLN 3 ML NEB NEB SCH ×2 (12:12→17:53)
[2019-01-12] MEDS: IPRATROPIUM BROMIDE 0.02% 2.5 ML NEB NEB SCH ×2 (12:12→17:49)
[2019-01-12 12:15] LABS: INR 0.8; PROTHROMBIN TIME 11.5 seconds (11.9-14.5)
--- NOTE | 2019-01-12 12:15 | Diagnostic Imaging Report ---
Chest, portable AP view History: Chest pain, leg pain Comparison: 07/20/2018 IMPRESSION: The heart is mildly enlarged, stable. The pulmonary vascular congestion and diffuse interstitial edema. No definite focal consolidation, sizable pleural effusion, or pneumothorax. Signed by: Varun Nolasco MD on 01/12/2019 12:12 PM
[2019-01-12 12:16] LABS: PARTIAL THROMBOPLASTIN TIME 29.4 seconds (23.8-35.5)
--- NOTE | 2019-01-12 12:17 | NUR ---
md state ok to cancel bc since antibiotics already given
--- NOTE | 2019-01-12 12:19 | NUR ---
cxr done portable
[2019-01-12 12:28] LABS: ALANINE AMINOTRANSFERASE 21 IU/L (0-55); ALBUMIN 3.3 g/dL (3.5-5.0); ALKALINE PHOSPHATASE 93 IU/L (40-150); BLOOD UREA NITROGEN 12 mg/dL (7-26); BUN/CREATININE RATIO 17 (6-25); CALCIUM 9.6 mg/dL (8.4-10.2); CARBON DIOXIDE 29 mmol/L (22-29); CHLORIDE 97 mmol/L (98-107); CREATINE KINASE 22 IU/L (30-200); CREATININE, SERUM 0.72 mg/dL (0.72-1.25); EST GLOMERULAR FILTRATION RATE > 60 ML/MIN (60-); GLUCOSE 134 mg/dL (74-118); LIPASE 29 U/L (8-78); SODIUM 137 mmol/L (136-145)
[2019-01-12] MEDS ORDERED: SODIUM CHLORIDE 0.9% 1000ML 1,000 ML ONE (12:28)
[2019-01-12] MEDS ORDERED: MORPHINE SULFATE INJ 4 MG/ML INJ 1ML IV PRN ×2 (12:30→12:45)
[2019-01-12] MEDS ORDERED: VANCOMYCIN 1GM/NS 250 ML 250 ML IV ONE (12:30)
[2019-01-12] MEDS: NICOTINE 21 MG/EA PATCH TOP SCH (12:32)
[2019-01-12] MEDS: FAMOTIDINE 20 MG/2 ML VIAL IV SCH ×2 (12:32→23:12)
[2019-01-12] MEDS: METOPROLOL TARTRATE 25 MG TAB PO SCH ×2 (12:33→23:12)
[2019-01-12 12:50] LABS: THYROID STIMULATING HORMONE 2.319 uIU/mL (0.350-4.940)
[2019-01-12] MEDS: POTASSIUM CHLORIDE 20 MEQ TAB CR PO SCH ×2 (13:12→23:12)
[2019-01-12] MEDS: FUROSEMIDE INJ 10 MG/ML 4 ML VIAL IV SCH ×2 (14:09→23:12)
--- NOTE | 2019-01-12 14:50 | NUR ---
ECHO DONE BEDSIDE
[2019-01-12] MEDS ORDERED: VANCOMYCIN 1GM/NS 250 ML 250 ML IV SCH ×2 (17:00→21:00)
[2019-01-12 17:18] LABS: AMPHETAMINES SCREEN,URINE NEGATIVE (NEGATIVE); BENZODIAZEPINES SCREEN,URINE NEGATIVE (NEGATIVE); PHENCYCLIDINE SCREEN,URINE NEGATIVE (NEGATIVE)
[2019-01-12 20:22] LABS: CREATINE KINASE MB 1.6 ng/mL (0-5.0)
[2019-01-12 21:30] VITALS: BP 127/66
--- NOTE | 2019-01-12 21:30 | NUR ---
patient received to room 292 via stretcher from the emergency room. vss. no c/o pain noted. 03/16l/nc in use. admit assessment/history complete. bilateral lower extremity swelling/redness noted with left being greater than the right. 2+ pitting edema noted to bilateral feet. small wound noted to left lateral lower extremity. patient states, " I bumped my leg on the bumper of a truck. " call alicia placed within reach. patient instructed to call for assistance when needed.
[2019-01-12 21:45] VITALS: BP 127/66
[2019-01-12] MEDS: ENOXAPARIN SODIUM INJ 100 MG/ML SYR SC SCH (23:12)
[2019-01-12] MEDS ORDERED: SODIUM CHLORIDE 0.9% 250ML 250 ML ONE (23:24)
[2019-01-13] VITALS (14 sets, daily range): BP systolic 93–137; BP diastolic 48–80
[2019-01-13] MEDS: IPRATROPIUM BROMIDE 0.02% 2.5 ML NEB NEB SCH ×6 (00:30→23:55)
[2019-01-13] MEDS: ALBUTEROL SULF 0.083% NEB SOLN 3 ML NEB NEB SCH ×6 (00:30→23:55)
[2019-01-13] MEDS: VANCOMYCIN 1GM/NS 250 ML 250 ML IV SCH ×2 (00:30→15:34)
--- NOTE | 2019-01-13 00:30 | NUR ---
patient oob, clothes wet with urine. patient appears confused. bed changed, bath and skin care provided and patient assisted back to bed. side rails up x 3 and bed alarm on for safety. iv abx continue to infuse without difficulty.
--- NOTE | 2019-01-13 00:56 | History and Physical ---
CHIEF COMPLAINT: 1. Bilateral leg swelling. 2. Bilateral leg redness since few days. HISTORY OF PRESENT ILLNESS: This is a 48-year-old male with noncompliance to my office visit was seen last time in one year ago. He never came to office or told me about his medical issue in last one year. The patient came to the ER and the ER doctor called me about his admission. He has some shortness of breath, wheezing, cough, bilateral leg swelling and redness. No diarrhea. No constipation. He has some left-sided atypical chest pain. No seizures. No focal weakness. ALLERGIES: SHELLFISH AND IODINE. PAST MEDICAL HISTORY: 1. Hypertension. 2. COPD. 3. Biventricular congestive heart failure. 4. Morbid obesity. 5. Osteoarthritis of knee. PAST SURGICAL HISTORY: History of right total knee arthroplasty. HABITS: Denies alcohol use. Occasionally smoking. Denies illicit drug use. FAMILY HISTORY: Noncontributory medication. REVIEW OF SYSTEMS: CONSTITUTIONAL: Denies fatigue or weakness. HEENT: No diplopia. No blurring of vision. CARDIOPULMONARY: He has chest pain and shortness of breath and cough. ALIMENTARY SYSTEM: No nausea. No vomiting. GENITOURINARY: No dysuria. No hematuria. MUSCULOSKELETAL: No joint pain. CENTRAL NERVOUS SYSTEM: No focal weakness. PHYSICAL EXAMINATION: GENERAL: This is a 44-year-old male who is alert, oriented x3. Mild respiratory distress. VITAL SIGNS: Temperature 98.2, pulse 90, respirations 17, blood pressure 140/60. HEENT: Head is atraumatic and normocephalic. Pupils bilaterally equal to light. Extraocular muscles intact. NECK: Supple. No JVD. No carotid bruit. LUNGS: Air entry fair. Decreased breath sounds at both bases. HEART: S1 and S2. Regular rate and rhythm. No S3. No S4. No murmur. ABDOMEN: Soft, nontender, obese. No guarding. No rigidity. EXTREMITIES: +3 pedal edema below knee and redness below knee bilateral leg redness. Peripheral pulses 1+. MACHINE STUFFER AUTOMATIC: Grossly nonfocal. LABORATORY DATA: Sodium 137, potassium 4, BUN and creatinine normal. Sugar 134, albumin 3.3. White count 7.83, hemoglobin and hematocrit normal. Platelet is normal. Cardiac enzyme normal. BNP 60.8. Chest x-ray, congestive heart failure. ASSESSMENT: 1. Bilateral leg cellulitis. 2. Biventricular heart failure. 3. Exacerbation of COPD. 4. Hypertension. 5. Morbid obesity. 6. Hypertension. PLAN: Admit patient to telemetry. V/Q scan to rule out PE. Cardiac enzyme, Lasix, Zosyn, vancomycin. ID consult and Cardiology consult. Continue all home medicine. MD SUKHDEV Barrera/MODL /[id number]
--- NOTE | 2019-01-13 03:00 | NUR ---
third set cardiac markers drawn at this time and sent to lab. patient appears to be sleeping soundly at this time. no signs of pain/discomfort noted.
[2019-01-13 03:50] LABS: ANION GAP 10.4 mmol/L (8-16); BLOOD UREA NITROGEN 9 mg/dL (7-26); BUN/CREATININE RATIO 13 (6-25); CALCIUM 8.9 mg/dL (8.4-10.2); CARBON DIOXIDE 32 mmol/L (22-29); CHLORIDE 99 mmol/L (98-107); CREATININE, SERUM 0.69 mg/dL (0.72-1.25); EST GLOMERULAR FILTRATION RATE > 60 ML/MIN (60-); GLUCOSE 123 mg/dL (74-118); POTASSIUM 4.4 mmol/L (3.5-5.1); SODIUM 137 mmol/L (136-145)
[2019-01-13] MEDS: PIPER-TAZ 3.375 GM 50 ML IV SCH ×3 (05:06→19:31)
[2019-01-13 06:01] LABS: CREATINE KINASE MB 1.4 ng/mL (0-5.0)
[2019-01-13 06:03] LABS: BASOPHILS # (AUTO) 0.1 (0.0-0.1); BASOPHILS % 0.5 % (0.0-1.0); EOSINOPHILS # (AUTO) 0.1 (0.0-0.4); EOSINOPHILS % 0.5 % (0.0-6.0); HEMATOCRIT 55.9 % (38.2-49.6); LYMPHOCYTES # (AUTO) 0.9 (1.0-3.2); LYMPHOCYTES % 8.9 % (18.0-39.1); MEAN CORPUSCULAR HEMOGLOBIN 28.8 pg (28-32); MEAN CORPUSCULAR HGB CONC 28.6 g/dL (31-35); MEAN CORPUSCULAR VOLUME 100.5 fL (81-99); MONOCYTES # (AUTO) 0.9 (0.2-0.8); MONOCYTES % 8.8 % (4.4-11.3); NEUTROPHILS # (AUTO) 8.4 (2.1-6.9); NEUTROPHILS % 79.3 % (38.7-80.0); PLATELET COUNT 221 x10e3/uL (140-360); RED BLOOD COUNT 5.56 x10e6/uL (4.3-5.7); RED CELL DISTRIBUTION WIDTH 17.2 % (11.7-14.4)
[2019-01-13 06:23] LABS: ALANINE AMINOTRANSFERASE 22 IU/L (0-55); ALBUMIN 3.3 g/dL (3.5-5.0); ALKALINE PHOSPHATASE 90 IU/L (40-150); ANION GAP 14.3 mmol/L (8-16); BLOOD UREA NITROGEN 9 mg/dL (7-26); BUN/CREATININE RATIO 13 (6-25); CALCIUM 9.1 mg/dL (8.4-10.2); CARBON DIOXIDE 29 mmol/L (22-29); CHLORIDE 100 mmol/L (98-107); CHOL/HDL RATIO 6.7 (3.9-4.7); CHOLESTEROL 208 MD/DL (0-199); EST GLOMERULAR FILTRATION RATE > 60 ML/MIN (60-); GLUCOSE 120 mg/dL (74-118); HDL CHOLESTEROL 31 MG/DL (40-60); LDL CHOLESTEROL 141 MG/DL (60-130); MAGNESIUM 1.9 MG/DL (1.3-2.1); PHOSPHORUS 4.1 MG/DL (2.3-4.7); POTASSIUM 4.3 mmol/L (3.5-5.1); SODIUM 139 mmol/L (136-145); TRIGLYCERIDES 182 MG/DL (0-149)
[2019-01-13 07:56] LABS: HYPOCHROMASIA SLIGHT
[2019-01-13] MEDS: LISINOPRIL 20 MG TAB PO SCH (09:00)
[2019-01-13] MEDS ORDERED: LISINOPRIL 10 MG TAB PO SCH (09:00)
[2019-01-13] MEDS: FUROSEMIDE INJ 10 MG/ML 4 ML VIAL IV SCH ×2 (10:26→21:28)
[2019-01-13] MEDS: ASPIRIN 81 MG ENTERIC COATED PO SCH (10:27)
[2019-01-13] MEDS: FAMOTIDINE 20 MG/2 ML VIAL IV SCH ×2 (10:27→21:29)
[2019-01-13] MEDS: METOPROLOL TARTRATE 25 MG TAB PO SCH ×2 (10:28→21:00)
[2019-01-13] MEDS: NICOTINE 21 MG/EA PATCH TOP SCH (10:29)
[2019-01-13] MEDS: QUETIAPINE FUMARATE 25 MG TAB PO SCH (10:29)
[2019-01-13] MEDS: ENOXAPARIN SODIUM INJ 100 MG/ML SYR SC SCH ×2 (10:29→21:30)
[2019-01-13] MEDS: POTASSIUM CHLORIDE 20 MEQ TAB CR PO SCH ×2 (10:30→21:00)
--- NOTE | 2019-01-13 10:52 | NUR ---
Patient complained of chest pain, attempted to mike Jovan Rasheed, put on hold for 3 minutes, hung up and called Dr Howard's answering service, spoke to dental office receptionist, she stated that she will page the physician.
--- NOTE | 2019-01-13 11:14 | NUR ---
Called Dr. Howard's answering service for second time regarding patient's chest pain.
[2019-01-13] MEDS ORDERED: NITROGLYCERIN 0.4 MG SUBL SL ONE (11:30)
[2019-01-13] MEDS ORDERED: NITROGLYCERIN 0.4 MG SUBL SL PRN (11:30)
[2019-01-13 12:44] LABS: ABG PCO2 84 mmHg (41-51); ABG PH 7.25 (7.31-7.41); ABG PO2 76 mmHg (80-105)
[2019-01-13 12:45] LABS: ABG HCO3 37 mmol/L (23-28)
--- NOTE | 2019-01-13 12:50 | NUR ---
Called Marek Gee M. answering service regarding STAT ABG results, spoke to Kris with service.
--- NOTE | 2019-01-13 13:20 | NUR ---
Visit made by the Spiritual Care Department Pastoral Visitor, Mindy Mckay. Pt out of room and no family at bedside. A card was left at the bedside to indicate a missed visit from a member of the Spiritual Care team and to inform the pt and family of the availability of a [employer] 24 hours a day/7 days a week. A electrical prospector will follow up as able. BRYAN GUERIN [employer] Spiritual Care Department O: [phone] Pager: [phone] ([phone] calling from)
[2019-01-13 16:31] LABS: ABG PH 7.27 (7.31-7.41)
[2019-01-13 16:32] LABS: ABG HCO3 36 mmol/L (23-28); ABG PCO2 79 mmHg (41-51); ABG PO2 74 mmHg (80-105)
--- NOTE | 2019-01-13 19:07 | Consultation ---
DATE OF CONSULTATION: Pulmonary Consultation REASON FOR CONSULT: Shortness of breath. I am unable to get any history from the patient. He is minimally responsive, opens his eyes and goes back to sleep, is unable to talk to me. The source of history is the chart and nursing communication. HISTORY OF PRESENT ILLNESS: Mr. Villafuerte is a 48-year-old male, who presented to the emergency room with complaints of shortness of breath and bilateral leg swelling and redness. This is per the ER note. He was started on IV hydration along with the IV antibiotics and nebulizer treatment. Pulmonary and Cardiology consultation has been called. Troponin has been normal. The patient will also receive one dose of Lasix. However, there is no Cleveland catheter and nursing staff is not able to tell me the urine output. REVIEW OF SYSTEMS: Unable to elicit any from the patient because of his mental status. PAST MEDICAL HISTORY: Obesity, hypertension, hyperlipidemia, and possible CHF. PAST SURGICAL HISTORY: None. FAMILY AND SOCIAL HISTORY: The patient is a smoker from the chart and urine drug screen is positive for opiates and cannabis. DIAGNOSTIC DATA: Chest x-ray, I have reviewed the images showing bilateral alveolar infiltrate and congestion. ASSESSMENT/PLAN: Mr. Villafuerte is a 48-year-old male, currently unresponsive. Body habitus is highly suggestive that the patient has obstructive sleep apnea and obesity-hypoventilation. Morphine was ordered for yesterday. I am unsure how many doses have been given. It was not given this morning per the nursing report. PLAN: 1. Move the patient to ICU or IMCU stat. Start the patient on BiPAP. The patient may require intubation if he does not improve stat ABG. Continue the patient on nebulizer treatment as ordered. 2. Lasix IV has been ordered. Recommend Cleveland catheterization to see if the patient is having urine output. IV antibiotics will be continued. This was discussed with the nursing staff on the floor. Thank you for this consult. MD CALLY Ward/MATEO /[id number]
--- NOTE | 2019-01-13 23:44 | Consultation ---
DATE OF CONSULTATION: Cardiology Consultation HISTORY OF PRESENT ILLNESS: This is a 48-year-old man with a history of chronic chest pain, morbid obesity, chronic diastolic heart failure, venous insufficiency with wounds and cellulitis, chronic obstructive pulmonary disease, and obesity hypoventilation syndrome, who presented to the emergency department with progressively worsening shortness of breath. His symptoms have been progressively worsening over the last days to weeks, [id number] in intensity, reports orthopnea and significant lower extremity swelling, associated with some mild chest discomfort. No typical exertional angina. No palpitations. The patient has been off medications for quite some time. REVIEW OF SYSTEMS: A 12-point review of system was conducted, is negative except stated above in the HPI. PAST MEDICAL HISTORY: As stated above in the HPI. PAST SURGICAL HISTORY: None recent. PAST FAMILY HISTORY: No premature coronary artery disease or sudden cardiac . SOCIAL HISTORY: Active tobacco user. ALLERGIES: SHELLFISH AND IODINE. MEDICATIONS: See medications reconciliation form. PHYSICAL EXAMINATION: VITAL SIGNS: Temperature is 98, heart rate is 85, respirations are 22, blood pressure is 137/68, and oxygen saturation is 98% on 3 L nasal cannula. GENERAL: He is a chronically ill-appearing man, seated at bedside, mildly short of breath. HEENT: Head is normocephalic and atraumatic. Eyes, the extraocular muscles are intact. Conjunctivae are clear. NECK: Obese. No jugular venous distention. CARDIOVASCULAR: Regular rate and rhythm. LUNGS: Diminished breath sounds at bases. ABDOMEN: Soft, nontender, obese, nondistended. EXTREMITIES: Significant pitting edema with cellulitic, erythematous skin. NEUROLOGIC: No focal deficits noted. CARDIOVASCULAR MEDICATIONS: Reviewed. LABORATORY DATA: Reviewed. Creatinine is 0.7. Troponins are negative x3. His BNP was 68. Total cholesterol is 208, LDL is 141. Chest x-ray showed cardiomegaly with pulmonary vascular congestion. IMPRESSION: 1. Sshzz-lq-gubvjby diastolic heart failure. 2. Morbid obesity. 3. Venous insufficiency. 4. Chronic obstructive pulmonary disease exacerbation. 5. Medical noncompliance. RECOMMENDATIONS: Continue current cardiovascular medications and antihypertensives. Continue Lasix intravenously for diuresis. Discussed the importance of fluid restriction and low-sodium diet as well. We will continue to follow along with you. DO JANINE Valencia/MATEO /[id number]
[2019-01-14] VITALS (22 sets, daily range): BP systolic 88–128; BP diastolic 44–84
[2019-01-14] MEDS: PIPER-TAZ 3.375 GM 50 ML IV SCH ×3 (00:35→13:13)
[2019-01-14 00:45] LABS: BILIRUBIN,URINE NEGATIVE (NEGATIVE); CLARITY,URINE CLEAR (CLEAR); COLOR,URINE YELLOW (YELLOW); KETONES,URINE NEGATIVE (NEGATIVE); LEUKOCYTE ESTERASE ,URINE NEGATIVE (NEGATIVE); NITRITE,URINE NEGATIVE (NEGATIVE); PROTEIN,URINE DIPSTICK NEGATIVE (NEGATIVE); URINE UROBILINOGEN 0.2 mg/dL (0.2 - 1)
--- NOTE | 2019-01-14 00:50 | Consultation ---
DATE OF CONSULTATION: REASON FOR CONSULTATION: Shortness of breath, cellulitis of the leg. HISTORY OF PRESENT ILLNESS: This patient who is a 48-year-old white male, morbidly obese patient, hypertension, COPD, congestive heart failure, noncompliant, osteoarthritis, comes in with redness and swelling of bilateral lower extremities, worse on the left than the right. The patient came to the emergency room where he was admitted on antibiotic, however, today he became short of breath, had to be transferred to the intensive care unit. He is currently on BiPAP, a little more alert. The patient is currently lying in bed, no family at bedside. History was reviewed. Chart reviewed. PAST MEDICAL HISTORY: As mentioned above, hypertension, COPD, morbidly obese patient, biventricular congestive heart failure, osteoarthritis. PAST SURGICAL HISTORY: Total knee replacement on the right. ALLERGIES: NKA. SOCIAL HISTORY: He denies smoking, drug abuse, or alcohol abuse. FAMILY HISTORY: Otherwise noncontributory. REVIEW OF SYSTEMS: The patient is short of breath. : Negative. GI: Negative. Otherwise unremarkable. The patient is started on vancomycin and Zosyn. LABORATORY DATA: Reviewed. White count 7.8. Sodium 137, potassium of 4.4, creatinine 0.69. PHYSICAL EXAMINATION: GENERAL: He is currently alert, oriented, follows commands. VITAL SIGNS: Stable. No fever. HEENT: He is not icteric. NECK: Supple, morbidly obese. EXTREMITIES: There is redness and swelling on the left leg involving the whole leg. IMPRESSION: 1. Cellulitis of the leg. 2. Pulmonary edema, fluid overload. 3. Morbidly obese patient. 4. Respiratory failure, probably pulmonary edema, concerned about also sepsis present on admission from cellulitis. I agree with vancomycin. Discontinue Zosyn. Currently, the patient is on BiPAP. Pulmonary is following. 5. Other medical problems as above. 6. Discussed with the medical team. We will follow with you. We will follow vancomycin trough. I will obtain blood cultures. MD LENA Lopez/MATEO /[id number]
[2019-01-14 01:30] LABS: BACTERIA,URINE FEW /HPF; EPITHELIAL CELLS,URINE FEW /LPF; RBC,URINE 0-5 /HPF (0-5); WBC,URINE (MAN) 0-5 /HPF (0-5)
[2019-01-14] MEDS: VANCOMYCIN 1GM/NS 250 ML 250 ML IV SCH ×2 (01:32→13:13)
[2019-01-14 05:39] LABS: ANION GAP 12.9 mmol/L (8-16); BLOOD UREA NITROGEN 5 mg/dL (7-26); BUN/CREATININE RATIO 8 (6-25); CALCIUM 8.8 mg/dL (8.4-10.2); CARBON DIOXIDE 35 mmol/L (22-29); CHLORIDE 97 mmol/L (98-107); CREATININE, SERUM 0.62 mg/dL (0.72-1.25); EST GLOMERULAR FILTRATION RATE > 60 ML/MIN (60-); GLUCOSE 90 mg/dL (74-118); POTASSIUM 3.9 mmol/L (3.5-5.1); SODIUM 141 mmol/L (136-145)
[2019-01-14] MEDS: ALBUTEROL SULF 0.083% NEB SOLN 3 ML NEB NEB SCH ×3 (07:00→19:00)
[2019-01-14] MEDS: IPRATROPIUM BROMIDE 0.02% 2.5 ML NEB NEB SCH ×3 (07:00→19:00)
[2019-01-14] MEDS: ASPIRIN 81 MG ENTERIC COATED PO SCH (08:05)
[2019-01-14] MEDS: FAMOTIDINE 20 MG/2 ML VIAL IV SCH ×2 (08:05→22:35)
[2019-01-14] MEDS: POTASSIUM CHLORIDE 20 MEQ TAB CR PO SCH ×2 (08:05→22:35)
[2019-01-14] MEDS: FUROSEMIDE INJ 10 MG/ML 4 ML VIAL IV SCH ×2 (08:05→22:35)
[2019-01-14] MEDS: METOPROLOL TARTRATE 25 MG TAB PO SCH ×2 (08:06→22:35)
[2019-01-14] MEDS: ENOXAPARIN SODIUM INJ 100 MG/ML SYR SC SCH (08:06)
[2019-01-14] MEDS: QUETIAPINE FUMARATE 25 MG TAB PO SCH (08:06)
[2019-01-14] MEDS: LISINOPRIL 20 MG TAB PO SCH (08:06)
[2019-01-14] MEDS: NICOTINE 21 MG/EA PATCH TOP SCH (08:06)
--- NOTE | 2019-01-14 18:16 | Progress Note ---
DATE: SUBJECTIVE: Mr. Villafuerte is doing much better today. He is more alert. He is more comfortable. There are no complaints. He was confused yesterday. REVIEW OF SYSTEMS: At the present time: HEENT: Negative. PULMONARY: Negative. CARDIAC: Negative. : Negative. SKIN: There is no new rash except on the legs, which is even better. LABORATORY DATA: Reviewed. His white count was 10.6. Sodium 141 and potassium 3.9. His urine culture is still pending. PHYSICAL EXAMINATION: GENERAL: He is currently alert, oriented, does not seem to be in acute distress. VITAL SIGNS: Stable, currently afebrile. HEENT: Not icteric. NECK: Supple. CHEST: Clear. COR: S1 and S2. ABDOMEN: Soft and obese. EXTREMITIES: Legs, the rash is subsiding. IMPRESSION AND PLAN: 1. Cellulitis of the leg, getting better. 2. Morbidly obese patient. 3. Sleep apnea. 4. Impending respiratory failure, better. 5. Concern about congestive heart failure. 6. Obesity. 7. Venous insufficiency. 8. Chronic obstructive pulmonary disease. 9. Noncompliance. 10. Elevated hemoglobin. Recommend workup. We will follow with you. Thank you for asking me to see this patient. MD LENA Lopez/MATEO /[id number]
--- NOTE | 2019-01-14 20:55 | NUR ---
Patient received via stretcher from ICU. AAO x 3. Patient had no complaints of pain except left calf tenderness (2/10). Erythema noted to bilateral extremities. Respirations even and non labored on 4L NC. Cleveland catheter draining dark brenda urine. Fall precautions implemented. Patient instructed to call for assistance when needed. Call light within reach.
[2019-01-15 00:11] VITALS: BP 117/58
--- NOTE | 2019-01-15 00:40 | NUR ---
Blood specimen sent to lab for analysis of vancomycin level.
[2019-01-15] MEDS: VANCOMYCIN 1GM/NS 250 ML 250 ML IV SCH (01:00)
[2019-01-15] MEDS: ALBUTEROL SULF 0.083% NEB SOLN 3 ML NEB NEB SCH ×3 (02:51→13:54)
[2019-01-15] MEDS: IPRATROPIUM BROMIDE 0.02% 2.5 ML NEB NEB SCH ×3 (02:51→13:54)
[2019-01-15 04:00] VITALS: BP 138/62
[2019-01-15 05:03] LABS: BASOPHILS % 0.3 % (0.0-1.0); EOSINOPHILS # (AUTO) 0.1 (0.0-0.4); HEMATOCRIT 49.3 % (38.2-49.6); HEMOGLOBIN 15.1 g/dL (14.0-18.0); LYMPHOCYTES # (AUTO) 0.9 (1.0-3.2); LYMPHOCYTES % 11.7 % (18.0-39.1); MEAN CORPUSCULAR HGB CONC 30.6 g/dL (31-35); MEAN CORPUSCULAR VOLUME 94.6 fL (81-99); MONOCYTES # (AUTO) 0.9 (0.2-0.8); MONOCYTES % 11.8 % (4.4-11.3); NEUTROPHILS # (AUTO) 5.7 (2.1-6.9); NEUTROPHILS % 74.3 % (38.7-80.0); PLATELET COUNT 205 x10e3/uL (140-360); RED BLOOD COUNT 5.21 x10e6/uL (4.3-5.7); RED CELL DISTRIBUTION WIDTH 16.6 % (11.7-14.4)
[2019-01-15 05:25] LABS: ALANINE AMINOTRANSFERASE 16 IU/L (0-55); ALKALINE PHOSPHATASE 81 IU/L (40-150); ANION GAP 13.7 mmol/L (8-16); BLOOD UREA NITROGEN 6 mg/dL (7-26); BUN/CREATININE RATIO 10 (6-25); CALCIUM 9.4 mg/dL (8.4-10.2); CARBON DIOXIDE 37 mmol/L (22-29); CHLORIDE 95 mmol/L (98-107); EST GLOMERULAR FILTRATION RATE > 60 ML/MIN (60-); GLUCOSE 99 mg/dL (74-118); POTASSIUM 3.7 mmol/L (3.5-5.1); SODIUM 142 mmol/L (136-145)
--- NOTE | 2019-01-15 06:55 | NUR ---
Received patient lying in bed with eyes open, respiration even and unlabored without SOB. Indwelling rodriguez catheter in placed, intact with yellow-colored urine draining to bag. Call light in reach.
--- NOTE | 2019-01-15 07:00 | NUR ---
Patient resting comfortably. Shift report given to oncoming nurse.
[2019-01-15 08:30] VITALS: BP 140/60
[2019-01-15] MEDS ORDERED: ENOXAPARIN SOD INJ 40 MG/0.4 ML SYR SC SCH (09:00)
--- NOTE | 2019-01-15 09:00 | NUR ---
Discontinue indwelling rodriguez catheter as ordered. Catheter tip intact. Patient is due to void at 1500.
[2019-01-15] MEDS: POTASSIUM CHLORIDE 20 MEQ TAB CR PO SCH (09:47)
[2019-01-15] MEDS: ASPIRIN 81 MG ENTERIC COATED PO SCH (09:47)
[2019-01-15] MEDS: FUROSEMIDE INJ 10 MG/ML 4 ML VIAL IV SCH (09:47)
[2019-01-15] MEDS: FAMOTIDINE 20 MG/2 ML VIAL IV SCH (09:47)
[2019-01-15] MEDS: METOPROLOL TARTRATE 25 MG TAB PO SCH (09:48)
[2019-01-15] MEDS: NICOTINE 21 MG/EA PATCH TOP SCH (09:48)
[2019-01-15] MEDS: LISINOPRIL 20 MG TAB PO SCH (09:48)
[2019-01-15] MEDS: QUETIAPINE FUMARATE 25 MG TAB PO SCH (09:48)
--- NOTE | 2019-01-15 09:51 | NUR ---
Spoke with Dr. Breen regarding DC plan. He states plan for LTAC. He has spoke to pt and pt is agreeable. Can transfer today if cleared by pulmonology. CM spoke to pt at bedside. He gave choice for [facility]. Signed letter placed in front of chart. Copy to pt. CM business card given to pt for any questions/concerns. Kamala Hernandez with [facility] was notified of referral.
[2019-01-15] MEDS ORDERED: VANCOMYCIN 1GM/NS 250 ML 250 ML IV SCH (10:00)
[2019-01-15 10:21] VITALS: BP 140/60
--- NOTE | 2019-01-15 11:07 | NUR ---
CM spoke with Dr. Dodd. Pt is cleared from his standpoint to transfer to [facility].
--- NOTE | 2019-01-15 11:28 | NUR ---
Patient voided at this time post-rodriguez catheter removal.
[2019-01-15] MEDS ORDERED: VANCOMYCIN 300 ML IV SCH (12:00)
[2019-01-15 12:08] VITALS: BP 114/63
--- NOTE | 2019-01-15 15:18 | NUR ---
LONG-TERM ACUTE CARE DISCHARGE INFORMATION PATIENT HAS BEEN ACCEPTED TO: [facility] [address] [place] [address] ACCEPTING MEMS PROCESS ENGINEER: Tawnya Lindsay ACCEPTING MD: Dr. Leia Breen ROOM: 318 NURSE CALL REPORT TO: [phone] THE FOLLOWING DOCUMENTS MUST ACCOMPANY PATIENT FOR TRANSFER: copy of chart. transfer MAR COPIED CHART: Elham, hospice community liaison MOT INFO RECEIVED FROM: Kamala Hernandez PHYSICIANS ORDER/RECONCILED MED LIST: to be obtained by bedside RN [id number] DNR: n/a Addendum: 01/15/19 at 1520 by Waleska Lowery CM MOT completed and placed at nurses station with pt's packet. LYNDA Vicente informed for MOT.
--- NOTE | 2019-01-15 15:45 | NUR ---
Paged Dr. Lisa Breen for discharge order, awaiting for call back.
[2019-01-15 16:02] VITALS: BP 110/55
--- NOTE | 2019-01-15 17:40 | NUR ---
Report given to Marizol, nurse in [facility].
--- NOTE | 2019-01-15 18:43 | NUR ---
Patient is transported via [facility] on stretcher. Respiration even and unlabored without SOB.
== END 2019-01-15 18:50 | DRG 291 ==
LOC: ER 11:13 → ERHOLD 11:46 → MED/SURG3 21:15 → ICU 01-13 14:18 → MED/SURG2 01-14 21:01
PROVIDERS: ADMIT Internal Medicine; ATTEND Internal Medicine
DX: I11.0 Hypertensive heart disease with heart failure (principal); J96.22 Acute and chronic respiratory failure with hypercapnia; L03.116 Cellulitis of left lower limb; J44.1 Chronic obstructive pulmonary disease with (acute) exacerbation; Z68.42 Body mass index [BMI] 45.0-49.9, adult; E66.2 Morbid (severe) obesity with alveolar hypoventilation; L03.115 Cellulitis of right lower limb; I50.33 Acute on chronic diastolic (congestive) heart failure; E66.01 Morbid (severe) obesity due to excess calories; G47.33 Obstructive sleep apnea (adult) (pediatric); I50.82 Biventricular heart failure
CPT/HCPCS: 36415; 36600; 71045; 80048; 80053; 80061; 80202; 80307; 81001; 82550; 82553; 82668; 82805; 83036; 83690; 83735; 83880; 84100; 84443; 84484; 85025; 85610; 85730; 87086; 93005; 93306; 93970; 94640; 94660; 99284; J1650; J1940; J2270; J2405; J2543; J3370; J7030; J7050